=== PATIENT | male | born 1935 | race Caucasian/White ===

== ENCOUNTER 2016-09-07 09:13 | Inpatient (IN) | payer MEDICARE, OTHER ==
[~2016-09-07] VITALS: Ht 167.6 cm; Wt 131.1 kg
[2016-09-07] VITALS (8 sets, daily range): BP systolic 124–144; BP diastolic 61–78; PULSE 58–84; RESP 16–22; TEMP 97.2–97.9; O2SAT 95–98
[~2016-09-07 09:13] MED LIST: COUM2TAB PO; D31000CA PO; FURO1TAB93 PO; HYDR10 PO; IMDU30TA PO; LEVA750T PO; LINE1TAB22 PO; METO25 PO; NOVOLOGSS SQ; REFR0.5D4 EACH EYE; SPIR25TA PO; ULTR50TA PO
[2016-09-07] MEDS ORDERED: SODIUM CHLORIDE 0.9% FLUSH 5 ML FLUSH IVF PRN (09:30)
[2016-09-07] MEDS ORDERED: VANCOMYCIN INJ 1,000 MG in SODIUM CHLOR 0.9% 250 ML INJ 250 ML IV ONE (09:45)
--- NOTE | 2016-09-07 09:45 | PD ---
HPI Chief Complaint: Skin Problem Time Seen by Provider: 09:23 Travel History International Travel<30 days: No Contact w/Intl Traveler<30days: No Traveled to known affect area: No History of Present Illness HPI 81-year-old male with history of diabetes, sent in from skilled nursing for evaluation of bilateral lower extremity cellulitis, failed outpatient therapy. According to the patient's paperwork, he is on Zosyn which she receives through a PICC line in his left arm. Patient complains of pain in bilateral legs which she has had for quite some time. He is otherwise a poor historian regarding why he is in the hospital. He is awake and alert. Case discussed with the patient's primary care physician Dr. Washington who says that he was informed by skilled nursing staff that the patient's lower extremity cellulitis on his left leg appears to be worsening and spreading up his thigh and lateral shows an elevated WBC count with worsening creatinine. PFSH Past Medical History Hx Anticoagulant Therapy: Yes Arthritis: Yes Asthma: No Atrial Fibrillation: Yes Autoimmune Disease: No Blood Disorders: No Anxiety: No Depression: Yes Heart Rhythm Problems: Yes (ATRIAL FIB, cardioversion ) Cancer: No Cardiac Catheterization: Yes Cardiovascular Problems: Yes High Cholesterol: Yes Chemotherapy: No Chest Pain: Yes COPD: Yes Cerebrovascular Accident: No Diabetes: Yes (type 2 diabetic) Patient Takes Glucophage: No Diminished Hearing: No Endocrine: Yes Gastrointestinal Disorders: No GERD: No Glaucoma: No Genitourinary: Yes Hepatitis: Yes (HEP B 1988) Hiatal Hernia: No Heparin Induced Thrombocytopen: No Hypertension: Yes Immune Disorder: No Implanted Vascular Access Dvce: No Kidney Stones: No Musculoskeletal: Yes (CHRONIC BACK PAIN) Neurologic: No Psychiatric: Yes (DENIES) Reproductive: No Respiratory: Yes Integumentary: Yes (ECEZEMA ) Immunizations Current: Yes Migraines: No Myocardial Infarction: Yes Radiation Therapy: No Renal Failure: No Seizures: No Sickle Cell Disease: No Sleep Apnea: Yes (CPAP NOT WEARING RECENTLY) Thyroid Disease: No Ulcer: No PNEUMOCCOCAL Vaccine (Year): 2 ?: Not Past Surgical History Abdominal Surgery: No AICD: No Appendectomy: No Arteriovenous Shunt: No Cardiac Surgery: Yes (ABLASION ) Cholecystectomy: No Ear Surgery: No Endocrine Surgery: No Eye Surgery: No Genitourinary Surgery: No Gynecologic Surgery: No Insulin Pump: No Joint Replacement: No Neurologic Surgery: No Oral Surgery: No Pacemaker: No Thoracic Surgery: No Tonsillectomy: Yes (1940) Other Surgery: Yes (SKIN GRAFTS) Social History Alcohol Use: Yes (LESS THAN 1 ONCE A WEEK ) Tobacco Use: No Substance Use: No Allergies-Medications (Allergen,Severity, Reaction): Coded Allergies: Sulfa (Verified Allergy, Intermediate, Rash, 09/07/16) *MDRO Multi-Drug Resistant Organism (Verified Adverse Reaction, Unknown, ) MRSA (leg wound) - 09/2015, 03/2016 Reported Meds & Prescriptions Reported Meds & Active Scripts Active Coumadin 2 mg (Warfarin Sodium) Warfarin Sodium 2 mg Tab 2 Mg PO DAILY Novolog Insulin Supplemental Scale (Insulin Aspart) 100 /Ml Inj 1 Bottle SQ ACHS SLIDING SCALE 90 Days Zyvox (Linezolid) 600 Mg Tab 600 Mg PO Q12HR 7 Days Levaquin 750 Mg Tab (Levofloxacin) 750 Mg Tab 750 Mg PO Q48H 7 Days Ultram (Tramadol HCl) 50 Mg Tab 50 Mg PO Q4H PRN Reported Refresh Tears (Carboxymethylcellulose Sodium) 0.5 % Antonietta 1 Drop EACH EYE Q6H PRN Metoprolol Tartrate 25 mg (Metoprolol Tartrate) 25 Mg Tab 12.5 Mg PO BID Atarax 10 Mg Tab (Hydroxyzine HCl) 10 Mg Tab 10 Mg PO DAILY PRN Spironolactone 25 Mg Tab 25 Mg PO BID Lasix (Furosemide) 40 Mg Tab 40 Mg PO BID Imdur (Isosorbide Mononitrate) 30 Mg Tab 30 Mg PO DAILY D3 (Cholecalciferol) 1,000 Unit Cap 1,000 Unit PO BID Review of Systems Except as stated in HPI: all other systems reviewed are Neg Physical Exam Narrative GENERAL: Well-developed, well-nourished, awake, alert, no acute distress. SKIN: Warm and dry. Bilateral lower extremities with moderate edema with warmth and erythema to bilateral legs with some erythema extending up the patient's left thigh. No crepitus. HEAD: Atraumatic. Normocephalic. EYES: Pupils equal and round. No scleral icterus. No injection or drainage. ENT: No nasal bleeding or discharge. Mucous membranes pink and moist. NECK: Trachea midline. No JVD. CARDIOVASCULAR: Regular rate and rhythm. No murmur appreciated. RESPIRATORY: No accessory muscle use. Clear to auscultation. Breath sounds equal bilaterally. GASTROINTESTINAL: Abdomen soft, non-tender, nondistended. Reducible periumbilical hernia. MUSCULOSKELETAL: Skin exam as above. Moderate bilateral lower extremity edema. NEUROLOGICAL: Awake and alert. No obvious cranial nerve deficits. Motor grossly within normal limits. Normal speech. PSYCHIATRIC: Appropriate mood and affect; insight and judgment normal. Data Data Last Documented VS Vital Signs Date Time Temp Pulse Resp B/P Pulse Ox O2 Delivery O2 Flow Rate FiO2 09/07/16 09:25 62 20 09/07/16 09:25 97.9 124/71 95 Room Air Orders Complete Blood Count With Diff (09/07/16 09:30) Comprehensive Metabolic Panel (09/07/16 09:30) Lactic Acid (09/07/16 09:30) Prothrombin Time / Inr (Pt) (09/07/16 09:30) Act Partial Throm Time (Ptt) (09/07/16 09:30) Iv Access Insert/Monitor (09/07/16 09:30) Ecg Monitoring (09/07/16 09:30) Oximetry (09/07/16 09:30) Sodium Chloride 0.9% Flush (Ns Flush) (09/07/16 09:30) Blood Culture (09/07/16 09:30) Vancomycin Inj (Vancomycin Inj) (09/07/16 09:45) Labs Laboratory Tests Test 09/07/16 10:05 White Blood Count 8.5 TH/MM3 Red Blood Count 4.42 MIL/MM3 Hemoglobin 13.8 GM/DL Hematocrit 41.4 % Mean Corpuscular Volume 93.6 FL Mean Corpuscular Hemoglobin 31.2 PG Mean Corpuscular Hemoglobin 33.3 % Concent Red Cell Distribution Width 13.5 % Platelet Count 260 TH/MM3 Mean Platelet Volume 6.9 FL Neutrophils (%) (Auto) 71.1 % Lymphocytes (%) (Auto) 16.3 % Monocytes (%) (Auto) 9.4 % Eosinophils (%) (Auto) 3.1 % Basophils (%) (Auto) 0.1 % Neutrophils # (Auto) 6.0 TH/MM3 Lymphocytes # (Auto) 1.4 TH/MM3 Monocytes # (Auto) 0.8 TH/MM3 Eosinophils # (Auto) 0.3 TH/MM3 Basophils # (Auto) 0.0 TH/MM3 CBC Comment AUTO DIFF Prothrombin Time 11.1 SEC Prothromb Time International 1.0 RATIO Ratio Activated Partial 28.0 SEC Thromboplast Time MDM Medical Decision Making Medical Screen Exam Complete: Yes Emergency Medical Condition: Yes Medical Record Reviewed: Yes Differential Diagnosis Sepsis, cellulitis, lymphangitis, necrotizing fasciitis unlikely Narrative Course Vital signs reviewed. Patient is well-known to Dr. Washington who would like to admit him to his service for failed outpatient therapy for bilateral lower extremity cellulitis. He'll be given a dose of vancomycin here in the emergency department. Diagnosis Primary Impression: Bilateral lower leg cellulitis Admitting Information Admitting Physician Requests: Admit Andrea Correia MD Sep 07, 2016 09:45
[2016-09-07 10:38] LABS: BASOPHIL % 0.1 % (0.0-2.0); EOSINOPHIL # 0.3 TH/MM3 (0-0.4); EOSINOPHIL % 3.1 % (0.0-4.0); HEMATOCRIT 41.4 % (39.0-51.0); LYMPH % 16.3 % (9.0-44.0); LYMPHOCYTE # 1.4 TH/MM3 (1.0-4.8); MEAN CELL VOLUME 93.6 FL (80.0-100.0); MEAN CORPUSCULAR HEMOGLOBIN 31.2 PG (27.0-34.0); MEAN CORPUSCULAR HGB CONC 33.3 % (32.0-36.0); MONO % 9.4 % (0.0-8.0); NEUT % 71.1 % (16.0-70.0); PLATELET COUNT 260 TH/MM3 (150-450); RED BLOOD COUNT 4.42 MIL/MM3 (4.50-5.90); RED CELL DISTRIBUTION WIDTH 13.5 % (11.6-17.2); WHITE BLOOD COUNT 8.5 TH/MM3 (4.0-11.0)
[2016-09-07 10:43] LABS: HEMO FLAGS AUTO DIFF
[2016-09-07 10:49] LABS: PROTHROMBIN TIME - PATIENT 11.1 SEC (9.8-11.6)
[2016-09-07 11:07] LABS: ALKALINE PHOSPHATASE 73 U/L (45-117); ALT (GPT) 28 U/L (12-78); ANION GAP 10 MEQ/L (5-15); AST (GOT) 29 U/L (15-37); BICARBONATE 28.6 MEQ/L (21.0-32.0); BLOOD UREA NITROGEN 51 MG/DL (7-18); CHLORIDE 93 MEQ/L (98-107); GLOMERULAR FILTRATION RATE 27 ML/MIN (>89); SODIUM (NA) 132 MEQ/L (136-145); TOTAL BILIRUBIN ADULT 0.4 MG/DL (0.2-1.0)
[2016-09-07 11:35] LABS: BANDS 8 % (0-6); MYELOCYTES 3 % (0-0); NEUTROPHIL # MANUAL DIFF 6.6 TH/MM3 (1.8-7.7); POLYS (SEG NEUTROPHILS) 67 % (16-70); WBC DIFF SAMPLE 100
[2016-09-07 11:36] LABS: PLATELET ESTIMATE SMEAR NORMAL (NORMAL); PLATELET MORPHOLOGY NORMAL (NORMAL); SCAN/DIFF FINAL DIFF MANUAL
--- NOTE | 2016-09-07 11:57 | HHI.HP ---
History of Present Illness Primary Care Physician Per Washington MD Admission Diagnosis bilateral lower extremity cellulitis Diagnoses: (1) Diarrhea (2) Coronary artery disease (3) Atrial fibrillation (4) Gout (5) Diabetes (6) CHF (congestive heart failure) (7) A-fib (8) Chronic renal insufficiency (9) Obstructive sleep apnea (10) COPD exacerbation (11) Bilateral leg edema (12) Acute on chronic renal failure (13) Morbid obesity with BMI of 45.0-49.9, adult (14) COPD (chronic obstructive pulmonary disease) (15) Cellulitis (16) HTN (hypertension) (17) MRSA (methicillin resistant Staphylococcus aureus) infection (18) MOISÉS (acute kidney injury) (19) Bilateral lower leg cellulitis History of Present Illness 81 Y CM. SNF RESIDENT. RECURRENT EDEMA AND CELLULITIS OF LEGS. HAS HAD DRAINING ULCER LLE. PT NONCOMPLIANT WITH ELEVATING LEGS. DEVELOPED WORSENING EDEMA AND SUBSEQUENT CELLULITIS. TREATED WITH PO ABX TWICE THIS MONTH, AND LAST WEEK I STARTED ZOSYN AT THE SNF. CELLULITIS OF LLE EXPANDED FROM CALF NOW TO THE LEFT THIGH. ALSO FOUND WITH WBC'S OF 19 THOUSAND, CREAT 2.6. PT STARTED HAVING DIARRHEA AGAIN YESTERDAY AND HAS HX C DIF. PT SON AND DGTR IN [facility] AND REQUESTED MORE AGGRESSIVE INPATIENT CARE. I ORDERED TO ER TODAY. PT SEEN IN C POD WITH HIS SON. DESHEVELED AND LETHARGIC. Sepsis Criteria SIRS Criteria (2 or more): RR > 20 or PaCO2 < 32, WBC > 16153, < 4000 or > 10 % bands Sepsis Criteria (SIRS+source): Infect source susp/known Severe Sepsis (+one): Organ Dysfunction, Lactate >2 Criteria Outcome: Meets severe sepsis criteria Review of Systems ROS Limitations: Clinical Condition, Altered Mental Status, Uncooperative, Hearing Impaired, Poor Historian Past Family Social History Allergies: Coded Allergies: Sulfa (Verified Allergy, Intermediate, Rash, 09/07/16) *MDRO Multi-Drug Resistant Organism (Verified Adverse Reaction, Unknown, ) MRSA (leg wound) - 09/2015, 03/2016 Past Medical History (1) Diarrhea (2) Coronary artery disease (3) Atrial fibrillation (4) Gout (5) Diabetes (6) CHF (congestive heart failure) (7) A-fib (8) Chronic renal insufficiency (9) Obstructive sleep apnea (10) COPD exacerbation (11) Bilateral leg edema (12) Acute on chronic renal failure (13) Morbid obesity with BMI of 45.0-49.9, adult (14) COPD (chronic obstructive pulmonary disease) (15) Cellulitis (16) HTN (hypertension) (17) MRSA (methicillin resistant Staphylococcus aureus) infection (18) MOISÉS (acute kidney injury) (19) Bilateral lower leg cellulitis Past Surgical History nc Reported Medications Current Medications Medications (Trade) Dose Ordered Sig/Abiola Route Start Time Stop Time Status Last Admin (NS Flush) 2 ml UNSCH PRN IVF 09/07/16 09:30 Family History NC Social History - ETD, SNF RES Physical Exam Vital Signs Vital Signs Date Time Temp Pulse Resp B/P Pulse Ox O2 Delivery O2 Flow Rate FiO2 09/07/16 11:51 58 18 127/65 95 Room Air 09/07/16 10:54 84 18 127/61 96 Room Air 09/07/16 09:25 62 20 09/07/16 09:25 97.9 62 18 124/71 95 Room Air 09/07/16 09:22 97.9 64 18 124/71 95 Physical Exam GENERAL: This is a well-nourished, well-developed patient, in no apparent distress. SKIN: No rashes, ecchymoses or lesions. Cool and dry. HEAD: Atraumatic. Normocephalic. No temporal or scalp tenderness. EYES: Pupils equal round and reactive. Extraocular motions intact. No scleral icterus. No injection or drainage. ENT: Nose without bleeding, purulent drainage or septal hematoma. Throat without erythema, tonsillar hypertrophy or exudate. Uvula midline. Airway patent. NECK: Trachea midline. No JVD or lymphadenopathy. Supple, nontender, no meningeal signs. CARDIOVASCULAR: Regular rate and rhythm without murmurs, gallops, or rubs. RESPIRATORY: Clear to auscultation. Breath sounds equal bilaterally. No wheezes , rales, or rhonchi. GASTROINTESTINAL: Abdomen soft, non-tender, nondistended. No hepato-splenomegaly , or palpable masses. No guarding. MUSCULOSKELETAL: LLE CELLULITIS TO MID THIGH, MILD RLE CELLULITIS, Negative Homans sign bilaterally. NEUROLOGICAL: Awake and alert. Cranial nerves II through XII intact. Motor and sensory grossly within normal limits. 1 out of 5 muscle strength in all muscle groups. Normal speech. Laboratory Laboratory Tests Test 09/07/16 09/07/16 10:05 10:15 White Blood Count 8.5 Red Blood Count 4.42 Hemoglobin 13.8 Hematocrit 41.4 Mean Corpuscular Volume 93.6 Mean Corpuscular Hemoglobin 31.2 Mean Corpuscular Hemoglobin 33.3 Concent Red Cell Distribution Width 13.5 Platelet Count 260 Mean Platelet Volume 6.9 Neutrophils (%) (Auto) 71.1 Lymphocytes (%) (Auto) 16.3 Monocytes (%) (Auto) 9.4 Eosinophils (%) (Auto) 3.1 Basophils (%) (Auto) 0.1 Neutrophils # (Auto) 6.0 Lymphocytes # (Auto) 1.4 Monocytes # (Auto) 0.8 Eosinophils # (Auto) 0.3 Basophils # (Auto) 0.0 CBC Comment AUTO DIFF Differential Total Cells 100 Counted Neutrophils % (Manual) 67 Band Neutrophils % 8 Lymphocytes % 13 Monocytes % 9 Neutrophils # (Manual) 6.6 Myelocytes 3 Differential Comment FINAL DIFF MANUAL Platelet Estimate NORMAL Platelet Morphology Comment NORMAL Red Cell Morphology Comment NORMAL Prothrombin Time 11.1 Prothromb Time International 1.0 Ratio Activated Partial 28.0 Thromboplast Time Sodium Level 132 Potassium Level 4.0 Chloride Level 93 Carbon Dioxide Level 28.6 Anion Gap 10 Blood Urea Nitrogen 51 Creatinine 2.34 Estimat Glomerular Filtration 27 Rate Random Glucose 319 Calcium Level 8.5 Total Bilirubin 0.4 Aspartate Amino Transf 29 (AST/SGOT) Alanine Aminotransferase 28 (ALT/SGPT) Alkaline Phosphatase 73 Total Protein 7.1 Albumin 2.6 Lactic Acid Level 3.2 Date/Time Procedure Status Source Growth 09/07/16 10:15 Aerobic Blood Culture Received Blood Peripheral Pending 09/07/16 10:15 Anaerobic Blood Culture Received Blood Peripheral Pending Result Diagram: 09/07/16 1005 09/07/16 1005 Assessment and Plan Problem List: (1) C. difficile colitis Status: Resolved (2) Ambulatory dysfunction Status: Acute (3) Failure of outpatient treatment Status: Acute (4) DM (diabetes mellitus) Status: Chronic (5) Obesity, Class III, BMI 40-49.9 (morbid obesity) Status: Acute (6) COPD (chronic obstructive pulmonary disease) Status: Chronic (7) Coronary artery disease Status: Chronic (8) Atrial fibrillation Status: Chronic (9) Gout Status: Acute (10) CHF (congestive heart failure) Status: Chronic (11) A-fib Status: Chronic (12) Chronic renal insufficiency Status: Chronic (13) HTN (hypertension) Status: Chronic (14) Obstructive sleep apnea Status: Chronic (15) COPD exacerbation Status: Acute (16) Bilateral leg edema Status: Chronic (17) MRSA (methicillin resistant Staphylococcus aureus) infection Status: Acute (18) Acute on chronic renal failure Status: Acute (19) MOISÉS (acute kidney injury) Status: Acute (20) Bilateral lower leg cellulitis Status: Acute (21) Morbid obesity with BMI of 45.0-49.9, adult Status: Chronic Assessment and Plan SEVERE SEPSIS LACTIC ACIDOSIS SEVERE LLE CELLULITIS CHRONIC EDEMA DM DIARRHEA, HISTORY OF C DIF MOISÉS COPD AF CHF GOUT MRSA HX PLAN: IV ABX IVF BLOOD CULTURES UA C/S C DIF ID CONSULT PT OT [facility] INPT ADMIT FOR THE ABOVE DX AND PLAN. EXPECT 5 D INPT STAY. DC BACK TO [facility]. Per Washington MD Sep 07, 2016 11:56
[2016-09-07] MEDS ORDERED: NALOXONE HCL 0.4 MG/ML AMP IV PRN (12:15)
[2016-09-07] MEDS ORDERED: SODIUM CHLORIDE 0.9% FLUSH 5 ML FLUSH FLUSH PRN (12:15)
[2016-09-07] MEDS ORDERED: DEXTROSE 50% IN WATER 50 ML VIAL(D50) IV PUSH PRN (12:15)
[2016-09-07] MEDS ORDERED: PIPERACIL-TAZO 3.375 GM PREMIX 50 ML IV SCH (12:15)
[2016-09-07] MEDS ORDERED: Vancomycin Consult Pharmacy 1 EA XX SCH (12:15)
[2016-09-07] MEDS ORDERED: GLUCAGON 1 MG/ML VIAL OTHER PRN (12:15)
[2016-09-07] MEDS ORDERED: BISACODYL 10 MG SUPP PR PRN (12:15)
[2016-09-07] MEDS ORDERED: ARTIFICIAL TEARS OPTH SOLN 15 ML BTL EACH EYE PRN (13:00)
[2016-09-07] MEDS ORDERED: ACETAMINOPHEN 325 MG TAB PO PRN (13:00)
[2016-09-07] MEDS ORDERED: LORazepam 0.5 MG TAB PO PRN (13:00)
[2016-09-07] MEDS ORDERED: MAGNESIUM HYDROXIDE SUSP 30 ML CUP PO PRN (13:00)
[2016-09-07] MEDS ORDERED: cloNIDine HCL 0.1 MG TAB PO PRN (13:00)
[2016-09-07] MEDS ORDERED: PIPERACIL-TAZO 2.25 GM PREMIX 50 ML IV SCH (13:00)
[2016-09-07] MEDS ORDERED: traMADol HCL 50 MG TAB PO PRN (13:00)
[2016-09-07] MEDS ORDERED: ONDANSETRON HCL 4 MG/2 ML VIAL IVP PRN (13:00)
[2016-09-07] MEDS: SODIUM CHLOR 0.9% 1000 ML INJ 1,000 ML IV SCH (13:36)
[2016-09-07] MEDS ORDERED: VANCOMYCIN 1,000 MG/NS 250 ML IV ONE ×2 (14:00)
[2016-09-07] MEDS: PANTOPRAZOLE SODIUM 40 MG VIAL IV PUSH SCH (15:09)
[2016-09-07] MEDS: ACETAMINOPHEN/HYDROcodone 325 MG/5 MG TAB PO PRN ×2 (15:54→21:26)
[2016-09-07] MEDS: INSULIN ASPART SUPPLEMENTAL SCALE SQ SCH ×2 (15:55→21:31)
[2016-09-07] MEDS: PIPERACIL-TAZO 2.25 GM PREMIX 50 ML IV SCH (18:01)
[2016-09-07] MEDS ORDERED: DAPTOmycin INJ 500 MG in SODIUM CHLORIDE 0.9% INJ 100 ML IV SCH (21:00)
[2016-09-07] MEDS ORDERED: ZOLPIDEM TARTRATE 5 MG TAB PO PRN (21:00)
[2016-09-07] MEDS: SODIUM CHLORIDE 0.9% FLUSH 5 ML FLUSH FLUSH SCH (21:00)
[2016-09-07] MEDS: METOPROLOL TARTRATE 25 MG TAB PO SCH (21:25)
[2016-09-07] MEDS: CLOTRIMAZOLE 1% CREAM 15 GM TOPICAL SCH (21:32)
[2016-09-08] VITALS (8 sets, daily range): BP systolic 126–146; BP diastolic 57–74; PULSE 62–75; RESP 18–22; TEMP 96.5–97.9; O2SAT 96–99
[2016-09-08] MEDS: PIPERACIL-TAZO 2.25 GM PREMIX 50 ML IV SCH ×5 (00:47→21:44)
[2016-09-08] MEDS: INSULIN ASPART SUPPLEMENTAL SCALE SQ SCH ×4 (06:37→21:45)
[2016-09-08 06:55] LABS: AUTOMATED NEUTROPHIL # 6.4 TH/MM3 (1.8-7.7); BASOPHIL % 0.5 % (0.0-2.0); EOSINOPHIL # 0.3 TH/MM3 (0-0.4); EOSINOPHIL % 3.7 % (0.0-4.0); HEMATOCRIT 41.1 % (39.0-51.0); HEMO FLAGS DIFF FINAL; LYMPH % 14.5 % (9.0-44.0); LYMPHOCYTE # 1.3 TH/MM3 (1.0-4.8); MEAN CELL VOLUME 93.3 FL (80.0-100.0); MEAN CORPUSCULAR HEMOGLOBIN 30.9 PG (27.0-34.0); MEAN CORPUSCULAR HGB CONC 33.1 % (32.0-36.0); MONO % 9.8 % (0.0-8.0); NEUT % 71.5 % (16.0-70.0); PLATELET COUNT 258 TH/MM3 (150-450); RED CELL DISTRIBUTION WIDTH 13.5 % (11.6-17.2); WHITE BLOOD COUNT 8.9 TH/MM3 (4.0-11.0)
[2016-09-08 07:03] LABS: PROTHROMBIN TIME - PATIENT 11.1 SEC (9.8-11.6)
[2016-09-08 07:12] LABS: BICARBONATE 27.9 MEQ/L (21.0-32.0); POTASSIUM 4.2 MEQ/L (3.5-5.1)
--- NOTE | 2016-09-08 08:40 | MB ---
cc: SIMON CARCAMO MD DATE OF CONSULTATION 09/07/[address] Washington REASON FOR CONSULTATION Sepsis HISTORY OF PRESENT ILLNESS This is an 81-year-old white male who presented to the emergency department with bilateral lower extremity redness of the skin. The patient was sent from a snf for evaluation. He had a PICC line in his left arm and was started on antibiotics in the form of Zyvox and Levaquin. He has also been complaining of pain in his legs and the cellulitis was noted to be some worsening and spreading up his thigh. The patient was reported to have a draining ulcer of the left lower extremity. Reportedly, he was treated with antibiotics two times earlier in the month and then was started on Zosyn. He reportedly has a history of C-difficile colitis. He was noted to be lethargic when he was seen earlier in the emergency department. The patient is currently sitting up in a chair. He is awake and alert although a little lethargic appearing. Vital signs: Include his temperature is 97.3. Blood cultures have been obtained. The patient denies chills. He denies nausea or vomiting. PAST MEDICAL HISTORY 1. History of bilateral lower extremity cellulitis in March 2016 with Pseudomonas maltophilia and MRSA. 2. History of peripheral arterial disease. 3. Diabetes mellitus 4. Hypertension 5. Morbid obesity 6. History of C-difficile. 7. Tonsillectomy ALLERGIES SULFA MEDICATIONS 1. Piperacillin/Tazobactam 2. Atarax 3. Lopressor 4. Imdur 5. Coumadin 6. Protonix 7. Insulin 8. Vancomycin dose given on 09/07/16 9. [place] 5 as needed SOCIAL HISTORY The patient is a snf resident. No tobacco use. Alcohol consumption once a week. No illicit drugs. FAMILY HISTORY Noncontributory REVIEW OF SYSTEMS Significant for pain in the legs, otherwise the patient's review of systems negative x10. PHYSICAL EXAMINATION This is an obese male who is in no acute distress. He is awake but lethargic. VITAL SIGNS: Temperature 97.38, BP 142/66, respirations 16, heart rate 73. HEENT: Head is atraumatic. Extraocular movements grossly intact, pupils reactive to light. No icterus. Oropharynx no visible lesions. NECK: Supple without adenopathy. LUNGS: Decreased clear breath sounds. HEART: Regular S1 and S2. No audible murmurs. ABDOMEN: Bowel sounds present, soft, markedly obese, nontender. RECTAL: Not performed. EXTREMITIES: Both lower extremities are extremely erythematous throughout and have blanching. The left lower extremity is much more erythematous and it has a purplish hue and is extremely warm. The toes have dry skin at the creases. No visible skin breaks or drainage. NEUROLOGIC: Nonfocal. LABORATORY DATA WBC 8.5, platelet count 260, 71% neutrophils, hemoglobin 13.8. Creatinine 2.34, BUN 51, sodium 132. IMPRESSION 1. Bilateral lower extremity cellulitis and edema. 2. Diabetes mellitus 3. Acute on chronic kidney disease. 4. Failed outpatient antibiotic therapy. RECOMMENDATIONS 1. Continue piperacillin/tazobactam. 2. Add daptomycin, adjusted for renal function. 3. Follow response of antibiotic treatment. 4. Apply antifungal cream between the creases of the toes. Thank you for this consultation. I will monitor the patient's progress and will make further recommendations on followup. A stool C-difficile toxin has been ordered and that should be monitored as well. Thank you for this consultation. Simon Carcamo MD FD/LIZANDRO /7:29 PM /8:23 AM TODD
[2016-09-08] MEDS: CLOTRIMAZOLE 1% CREAM 15 GM TOPICAL SCH ×2 (08:48→21:41)
[2016-09-08] MEDS: SODIUM CHLORIDE 0.9% FLUSH 5 ML FLUSH FLUSH SCH ×2 (08:48→21:46)
[2016-09-08] MEDS: METOPROLOL TARTRATE 25 MG TAB PO SCH ×2 (08:49→21:41)
[2016-09-08] MEDS: ISOSORBIDE MONONITRATE 30 MG TAB PO SCH (08:49)
[2016-09-08] MEDS ORDERED: hydrOXYzine HCL 10 MG TAB PO PRN (09:00)
--- NOTE | 2016-09-08 11:51 | HHI.FPPN ---
Subjective Remarks MOD DISTRESS C/O WEAKNESS COUGHING MORE CONFUSED D/W RN Objective Vitals Vital Signs Date Time Temp Pulse Resp B/P Pulse Ox O2 Delivery O2 Flow Rate FiO2 09/08/16 08:00 97.5 68 20 131/60 97 09/08/16 04:00 97.8 71 20 144/74 99 09/08/16 00:00 97.3 71 22 135/73 96 09/07/16 20:00 97.2 67 22 144/77 97 09/07/16 16:00 97.3 73 16 143/66 98 09/07/16 15:47 72 18 142/78 96 09/07/16 11:51 58 18 127/65 95 Room Air I/O 09/07/16 09/07/16 09/07/16 09/08/16 09/08/16 09/08/16 07:00 15:00 23:00 07:00 15:00 23:00 Intake Total 240 ml 60 ml Output Total 400 ml Balance -160 ml 60 ml Intake Oral 240 ml 60 ml Output Urine Total 400 ml # Voids 2 2 # Bowel Movements 2 2 Result Diagram: 09/08/1637 09/08/1637 Objective Remarks GENERAL: SKIN: Warm and dry. HEAD: Atraumatic. Normocephalic. EYES: Pupils equal and round. No scleral icterus. No injection or drainage. ENT: No nasal bleeding or discharge. Mucous membranes pink and moist. NECK: Trachea midline. No JVD. CARDIOVASCULAR: Regular rate and rhythm. RESPIRATORY: No accessory muscle use. Clear to auscultation. Breath sounds equal bilaterally. GASTROINTESTINAL: Abdomen soft, non-tender, nondistended. Hepatic and splenic margins not palpable. MUSCULOSKELETAL: 3 LE EDEMA, SEVERE LLE CELLULITIS TO MID THIGH, MILD ON R NEUROLOGICAL: Awake and alert. No obvious cranial nerve deficits. Motor grossly within normal limits. 1 out of 5 muscle strength in the arms and legs. Normal speech. PSYCHIATRIC: Appropriate mood and affect; insight and judgment normal. Medications and IVs Current Medications Medications (Trade) Dose Ordered Sig/Abiola Route Start Time Stop Time Status Last Admin (Tears Naturale Opth Soln) 1 drop Q6H PRN EACH EYE 09/07/16 13:00 (Imdur) 30 mg DAILY PO 09/08/16 09:00 09/08/16 08:49 (Lopressor) 12.5 mg BID PO 09/07/16 21:00 09/08/16 08:49 (Ultram) 50 mg Q4HR PRN PO 09/07/16 13:00 (Coumadin) 2 mg DAILY@16 PO 09/08/16 16:00 Hydroxyzine HCl 10 mg 10 mg DAILY PRN PO 09/08/16 09:00 09/08/16 04:21 (NS 1000 ml Inj) 1,000 ml @ 42 mls/hr [id number] IV 09/07/16 12:02 09/07/16 13:36 (NS Flush) 2 ml UNSCH PRN FLUSH 09/07/16 12:15 (NS Flush) 2 ml BID FLUSH 09/07/16 21:00 09/08/16 08:48 (Tylenol) 650 mg Q4H PRN PO 09/07/16 13:00 (Zofran Inj) 4 mg Q6H PRN IVP 09/07/16 13:00 (Dulcolax Supp) 10 mg DAILY PRN CA 09/07/16 12:15 (Milk Of Magndomo Liq) 30 ml Q12HR PRN PO 09/07/16 13:00 (Ambien) 5 mg HS PRN PO 09/07/16 21:00 (Narcan Inj) 0.4 mg UNSCH PRN IV 09/07/16 12:15 ([place] 5-325 Mg) 1 tab Q4H PRN PO 09/07/16 13:00 09/07/16 21:26 (Ativan) 0.5 mg Q8H PRN PO 09/07/16 13:00 Clonidine 0.1 mg 0.1 mg Q6H PRN PO 09/07/16 13:00 (Coumadin Consult Pharmacy) 0 ml @ 0 mls/hr UNSCH OTHER 09/07/16 12:15 (Protonix Inj) 40 mg Q24H IV PUSH 09/07/16 15:00 09/07/16 15:09 (D50w (Vial) Inj) 25 ml UNSCH PRN IV PUSH 09/07/16 12:15 Glucagon 1 mg 1 mg UNSCH PRN OTHER 09/07/16 12:15 Piperacillin Sod/ Tazobactam Sod 50 ml @ 100 mls/hr Q6H IV 09/07/16 18:00 09/08/16 06:34 (Cubicin Inj/NS Inj) 100 ml @ 200 mls/hr Q48H IV 09/07/16 21:00 09/07/16 21:32 (Lotrimin 1% Cream) 1 applic Q12HR TOPICAL 09/07/16 21:00 09/08/16 08:48 A/P Assessment and Plan SEVERE SEPSIS LACTIC ACIDOSIS SEVERE LLE CELLULITIS CHRONIC EDEMA DM DIARRHEA, HISTORY OF C DIF MOISÉS COPD AF CHF GOUT MRSA HX PLAN: IV ABX IVF BLOOD CULTURES UA C/S C DIF ID CONSULT PT OT [facility] Per Washington MD Sep 08, 2016 11:51
[2016-09-08] MEDS: SODIUM CHLOR 0.9% 1000 ML INJ 1,000 ML IV SCH (12:25)
[2016-09-08] MEDS: PANTOPRAZOLE SODIUM 40 MG VIAL IV PUSH SCH (16:16)
[2016-09-08] MEDS: WARFARIN SOD 2 MG TAB PO SCH (16:16)
--- NOTE | 2016-09-08 19:04 | HHI.IDPN ---
Note Infectious Disease Note Patient is sleepy. Wakes up and says he is okay then drift's back to sleep. RN reports that he mostly sleeps except when he gets up to eat. Afebrile. Seen for LE cellulitis. PAST MEDICAL HISTORY 1. History of bilateral lower extremity cellulitis in March 2016 with Pseudomonas maltophilia and MRSA. 2. History of peripheral arterial disease. 3. Diabetes mellitus 4. Hypertension 5. Morbid obesity 6. History of C-difficile. 7. Tonsillectomy ALLERGIES SULFA MEDICATIONS 1. Piperacillin/Tazobactam 2. Daptomycin. OBJECTIVE: Vital Signs Date Time Temp Pulse Resp B/P Pulse Ox O2 Delivery O2 Flow Rate FiO2 09/08/16 18:16 97 21 09/08/16 16:00 97.9 75 20 132/58 97 09/08/16 12:00 96.5 63 18 126/57 97 09/08/16 08:00 97.5 68 20 131/60 97 09/08/16 04:00 97.8 71 20 144/74 99 09/08/16 00:00 97.3 71 22 135/73 96 09/07/16 20:00 97.2 67 22 144/77 97 09/07/16 09/07/16 09/08/16 15:00 23:00 07:00 Intake Total 240 ml 60 ml Output Total 400 ml Balance -160 ml 60 ml Intake Oral 240 ml 60 ml Output Urine Total 400 ml # Voids 2 2 # Bowel Movements 2 2 Laboratory Tests Test 09/07/16 09/08/16 10:05 06:37 White Blood Count 8.5 TH/MM3 8.9 TH/MM3 Red Blood Count 4.42 MIL/MM3 4.40 MIL/MM3 Hemoglobin 13.8 GM/DL 13.6 GM/DL Hematocrit 41.4 % 41.1 % Mean Corpuscular Volume 93.6 FL 93.3 FL Mean Corpuscular Hemoglobin 31.2 PG 30.9 PG Mean Corpuscular Hemoglobin 33.3 % 33.1 % Concent Red Cell Distribution Width 13.5 % 13.5 % Platelet Count 260 TH/MM3 258 TH/MM3 Mean Platelet Volume 6.9 FL 6.9 FL Neutrophils (%) (Auto) 71.1 % 71.5 % Lymphocytes (%) (Auto) 16.3 % 14.5 % Monocytes (%) (Auto) 9.4 % 9.8 % Eosinophils (%) (Auto) 3.1 % 3.7 % Basophils (%) (Auto) 0.1 % 0.5 % Neutrophils # (Auto) 6.0 TH/MM3 6.4 TH/MM3 Lymphocytes # (Auto) 1.4 TH/MM3 1.3 TH/MM3 Monocytes # (Auto) 0.8 TH/MM3 0.9 TH/MM3 Eosinophils # (Auto) 0.3 TH/MM3 0.3 TH/MM3 Basophils # (Auto) 0.0 TH/MM3 0.0 TH/MM3 CBC Comment AUTO DIFF DIFF FINAL Differential Total Cells 100 Counted Neutrophils % (Manual) 67 % Band Neutrophils % 8 % Lymphocytes % 13 % Monocytes % 9 % Neutrophils # (Manual) 6.6 TH/MM3 Myelocytes 3 % Differential Comment FINAL DIFF MANUAL Platelet Estimate NORMAL Platelet Morphology Comment NORMAL Red Cell Morphology Comment NORMAL Laboratory Tests Test 09/07/16 09/07/16 09/08/16 09/08/16 10:05 10:15 00:09 06:37 Sodium Level 132 MEQ/L 136 MEQ/L Potassium Level 4.0 MEQ/L 4.2 MEQ/L Chloride Level 93 MEQ/L 101 MEQ/L Carbon Dioxide Level 28.6 MEQ/L 27.9 MEQ/L Anion Gap 10 MEQ/L 7 MEQ/L Blood Urea Nitrogen 51 MG/DL 45 MG/DL Creatinine 2.34 MG/DL 1.83 MG/DL Estimat Glomerular Filtration 27 ML/MIN 36 ML/MIN Rate Random Glucose 319 MG/DL 189 MG/DL Calcium Level 8.5 MG/DL 8.7 MG/DL Total Bilirubin 0.4 MG/DL Aspartate Amino Transf 29 U/L (AST/SGOT) Alanine Aminotransferase 28 U/L (ALT/SGPT) Alkaline Phosphatase 73 U/L Total Protein 7.1 GM/DL Albumin 2.6 GM/DL Lactic Acid Level 3.2 mmol/L 1.9 mmol/L Microbiology Date/Time Procedure Status Source Growth 09/07/16 10:05 Aerobic Blood Culture - Preliminary Resulted Blood Peripheral NO GROWTH IN 1 DAY 09/07/16 10:05 Anaerobic Blood Culture - Preliminary Resulted Blood Peripheral NO GROWTH IN 1 DAY 09/07/16 10:15 Aerobic Blood Culture - Preliminary Resulted Blood Peripheral NO GROWTH IN 1 DAY 09/07/16 10:15 Anaerobic Blood Culture - Preliminary Resulted Blood Peripheral NO GROWTH IN 1 DAY PHYSICAL EXAMINATION GENERAL: No acute distress. He is lethargic. HEENT: No icterus. Oropharynx no visible lesions. NECK: Supple without adenopathy. LUNGS: Decreased breath sounds. HEART: Regular S1 and S2. No audible murmurs. ABDOMEN: Bowel sounds present, soft, markedly obese, nontender. EXTREMITIES: Both lower extremities are extremely erythematous throughout and have blanching. The left lower extremity is much more erythematous and it has a purplish hue and is extremely warm. Erythema up to the thigh. No extension but not receded. NEUROLOGIC: Nonfocal. IMPRESSION 1. Bilateral lower extremity cellulitis and edema. Slow to respond to antibiotics. 2. Diabetes mellitus 3. Acute on chronic kidney disease. 4. Failed outpatient antibiotic therapy. RECOMMENDATIONS 1. Continue piperacillin/tazobactam. 2. Continue Daptomycin, adjusted for renal function. 3. Follow response of antibiotic treatment. Eric Hunter MD Sep 08, 2016 19:04
[2016-09-08] MEDS: ACETAMINOPHEN/HYDROcodone 325 MG/5 MG TAB PO PRN (21:41)
[2016-09-09] VITALS (7 sets, daily range): BP systolic 113–148; BP diastolic 8–78; PULSE 57–72; RESP 20; TEMP 97.3–98.3; O2SAT 95–99
[2016-09-09] MEDS: PIPERACIL-TAZO 2.25 GM PREMIX 50 ML IV SCH ×3 (04:41→16:42)
[2016-09-09] MEDS: INSULIN ASPART SUPPLEMENTAL SCALE SQ SCH ×4 (05:57→22:48)
[2016-09-09 08:20] LABS: AUTOMATED NEUTROPHIL # 6.6 TH/MM3 (1.8-7.7); BASOPHIL % 0.5 % (0.0-2.0); EOSINOPHIL # 0.3 TH/MM3 (0-0.4); EOSINOPHIL % 3.5 % (0.0-4.0); HEMATOCRIT 43.8 % (39.0-51.0); HEMO FLAGS DIFF FINAL; LYMPH % 15.9 % (9.0-44.0); LYMPHOCYTE # 1.5 TH/MM3 (1.0-4.8); MEAN CELL VOLUME 93.8 FL (80.0-100.0); MEAN CORPUSCULAR HEMOGLOBIN 31.1 PG (27.0-34.0); MEAN CORPUSCULAR HGB CONC 33.1 % (32.0-36.0); MONO % 9.1 % (0.0-8.0); PLATELET COUNT 244 TH/MM3 (150-450); RED BLOOD COUNT 4.67 MIL/MM3 (4.50-5.90); RED CELL DISTRIBUTION WIDTH 13.8 % (11.6-17.2); WHITE BLOOD COUNT 9.3 TH/MM3 (4.0-11.0)
[2016-09-09 08:38] LABS: BICARBONATE 27.4 MEQ/L (21.0-32.0); POTASSIUM 4.1 MEQ/L (3.5-5.1)
[2016-09-09] MEDS: CLOTRIMAZOLE 1% CREAM 15 GM TOPICAL SCH ×2 (08:46→21:00)
[2016-09-09] MEDS: ACETAMINOPHEN/HYDROcodone 325 MG/5 MG TAB PO PRN ×3 (08:46→22:47)
[2016-09-09] MEDS: ISOSORBIDE MONONITRATE 30 MG TAB PO SCH (08:46)
[2016-09-09] MEDS: METOPROLOL TARTRATE 25 MG TAB PO SCH ×2 (08:46→22:47)
[2016-09-09] MEDS: SODIUM CHLORIDE 0.9% FLUSH 5 ML FLUSH FLUSH SCH ×2 (08:47→21:00)
--- NOTE | 2016-09-09 08:59 | HHI.FPPN ---
Subjective Remarks INCR WEAKNESS C/O LEG PAIN C/O EDEMA D/W RN Objective Vitals Vital Signs Date Time Temp Pulse Resp B/P Pulse Ox O2 Delivery O2 Flow Rate FiO2 09/09/16 04:00 98.0 71 20 135/63 98 09/09/16 00:01 98.3 64 20 124/60 95 09/08/16 21:40 62 09/08/16 20:00 97.6 69 19 146/66 96 09/08/16 18:16 97 21 09/08/16 16:00 97.9 75 20 132/58 97 09/08/16 12:00 96.5 63 18 126/57 97 I/O 09/08/16 09/08/16 09/08/16 09/09/16 09/09/16 09/09/16 07:00 15:00 23:00 07:00 15:00 23:00 Intake Total 60 ml 1515 ml 480 ml 895 ml Output Total 800 ml 450 ml Balance 60 ml 715 ml 30 ml 895 ml Intake Oral 60 ml 480 ml 480 ml 120 ml IV Total 1035 ml 775 ml Output Urine Total 800 ml 450 ml # Voids 2 # Bowel Movements 2 2 2 2 Result Diagram: 09/09/16 0736 09/09/16735 Objective Remarks GENERAL: SKIN: Warm and dry. HEAD: Atraumatic. Normocephalic. EYES: Pupils equal and round. No scleral icterus. No injection or drainage. ENT: No nasal bleeding or discharge. Mucous membranes pink and moist. NECK: Trachea midline. No JVD. CARDIOVASCULAR: Regular rate and rhythm. RESPIRATORY: No accessory muscle use. Clear to auscultation. Breath sounds equal bilaterally. GASTROINTESTINAL: Abdomen soft, non-tender, nondistended. Hepatic and splenic margins not palpable. MUSCULOSKELETAL: 3 LE EDEMA, SEVERE LLE CELLULITIS TO MID THIGH, MILD ON R NEUROLOGICAL: Awake and alert. No obvious cranial nerve deficits. Motor grossly within normal limits. 1 out of 5 muscle strength in the arms and legs. Normal speech. PSYCHIATRIC: Appropriate mood and affect; insight and judgment normal. Medications and IVs Current Medications Medications (Trade) Dose Ordered Sig/Abiola Route Start Time Stop Time Status Last Admin (Tears Naturale Opth Soln) 1 drop Q6H PRN EACH EYE 09/07/16 13:00 (Imdur) 30 mg DAILY PO 09/08/16 09:00 09/09/16 08:46 (Lopressor) 12.5 mg BID PO 09/07/16 21:00 09/09/16 08:46 (Ultram) 50 mg Q4HR PRN PO 09/07/16 13:00 (Coumadin) 2 mg DAILY@16 PO 09/08/16 16:00 09/08/16 16:16 Hydroxyzine HCl 10 mg 10 mg DAILY PRN PO 09/08/16 09:00 09/08/16 04:21 (NS 1000 ml Inj) 1,000 ml @ 42 mls/hr [id number] IV 09/07/16 12:02 09/08/16 12:25 (NS Flush) 2 ml UNSCH PRN FLUSH 09/07/16 12:15 (NS Flush) 2 ml BID FLUSH 09/07/16 21:00 09/09/16 08:47 (Tylenol) 650 mg Q4H PRN PO 09/07/16 13:00 (Zofran Inj) 4 mg Q6H PRN IVP 09/07/16 13:00 (Dulcolax Supp) 10 mg DAILY PRN [place] 09/07/16 12:15 (Milk Of Magnesia Liq) 30 ml Q12HR PRN PO 09/07/16 13:00 (Ambien) 5 mg HS PRN PO 09/07/16 21:00 (Narcan Inj) 0.4 mg UNSCH PRN IV 09/07/16 12:15 ([place] 5-325 Mg) 1 tab Q4H PRN PO 09/07/16 13:00 09/09/16 08:46 (Ativan) 0.5 mg Q8H PRN PO 09/07/16 13:00 Clonidine 0.1 mg 0.1 mg Q6H PRN PO 09/07/16 13:00 (Coumadin Consult Pharmacy) 0 ml @ 0 mls/hr UNSCH OTHER 09/07/16 12:15 (Protonix Inj) 40 mg Q24H IV PUSH 09/07/16 15:00 09/08/16 16:16 (D50w (Vial) Inj) 25 ml UNSCH PRN IV PUSH 09/07/16 12:15 Glucagon 1 mg 1 mg UNSCH PRN OTHER 09/07/16 12:15 (Zosyn 2.25 Gm Premix) 50 ml @ 100 mls/hr Q6H IV 09/07/16 18:00 09/09/16 04:41 Clotrimazole 1 applic 1 applic Q12HR TOPICAL 09/07/16 21:00 09/09/16 08:46 (Cubicin Inj/NS Inj) 100 ml @ 200 mls/hr Q24H IV 09/09/16 21:00 Urinary Catheter: No A/P Assessment and Plan SEVERE SEPSIS LACTIC ACIDOSIS SEVERE LLE CELLULITIS CHRONIC EDEMA DM DIARRHEA, HISTORY OF C DIF MOISÉS COPD AF CHF GOUT MRSA HX PLAN: IV ABX IVF BLOOD CULTURES UA C/S C DIF ID CONSULT PT OT ST INSULIN COUMADIN, FOLLOWUP INR'S 3 Per [place] MD Sep 09, 2016 08:59
[2016-09-09 09:46] LABS: PROTHROMBIN TIME - PATIENT 10.8 SEC (9.8-11.6)
[2016-09-09] MEDS: SODIUM CHLOR 0.9% 1000 ML INJ 1,000 ML IV SCH (11:40)
[2016-09-09] MEDS ORDERED: WARFARIN SOD 2 MG TAB PO SCH (16:00)
[2016-09-09] MEDS: PANTOPRAZOLE SODIUM 40 MG VIAL IV PUSH SCH (16:43)
[2016-09-09] MEDS: WARFARIN SOD 2 MG TAB PO SCH (16:43)
--- NOTE | 2016-09-09 17:05 | HHI.IDPN ---
Note Infectious Disease Note Patient is very alert. Up in chair. Afebrile. denies chills. No loose stools. Seen for LE cellulitis. PAST MEDICAL HISTORY 1. History of bilateral lower extremity cellulitis in March 2016 with Pseudomonas maltophilia and MRSA. 2. History of peripheral arterial disease. 3. Diabetes mellitus 4. Hypertension 5. Morbid obesity 6. History of C-difficile. 7. Tonsillectomy ALLERGIES SULFA MEDICATIONS 1. Piperacillin/Tazobactam 2. Daptomycin. OBJECTIVE: Vital Signs Date Time Temp Pulse Resp B/P Pulse Ox O2 Delivery O2 Flow Rate FiO2 09/09/16 12:43 96 21 09/09/16 12:00 97.3 58 20 113/68 98 09/09/16 04:00 98.0 71 20 135/63 98 09/09/16 00:01 98.3 64 20 124/60 95 09/08/16 21:40 62 09/08/16 20:00 97.6 69 19 146/66 96 09/08/16 18:16 97 21 09/08/16 09/08/16 09/09/16 15:00 23:00 07:00 Intake Total 1515 ml 480 ml 895 ml Output Total 800 ml 450 ml Balance 715 ml 30 ml 895 ml Intake Oral 480 ml 480 ml 120 ml IV Total 1035 ml 775 ml Output Urine Total 800 ml 450 ml # Bowel Movements 2 2 2 Laboratory Tests Test 09/08/16 09/09/16 06:37 07:36 White Blood Count 8.9 TH/MM3 9.3 TH/MM3 Red Blood Count 4.40 MIL/MM3 4.67 MIL/MM3 Hemoglobin 13.6 GM/DL 14.5 GM/DL Hematocrit 41.1 % 43.8 % Mean Corpuscular Volume 93.3 FL 93.8 FL Mean Corpuscular Hemoglobin 30.9 PG 31.1 PG Mean Corpuscular Hemoglobin 33.1 % 33.1 % Concent Red Cell Distribution Width 13.5 % 13.8 % Platelet Count 258 TH/MM3 244 TH/MM3 Mean Platelet Volume 6.9 FL 7.0 FL Neutrophils (%) (Auto) 71.5 % 71.0 % Lymphocytes (%) (Auto) 14.5 % 15.9 % Monocytes (%) (Auto) 9.8 % 9.1 % Eosinophils (%) (Auto) 3.7 % 3.5 % Basophils (%) (Auto) 0.5 % 0.5 % Neutrophils # (Auto) 6.4 TH/MM3 6.6 TH/MM3 Lymphocytes # (Auto) 1.3 TH/MM3 1.5 TH/MM3 Monocytes # (Auto) 0.9 TH/MM3 0.8 TH/MM3 Eosinophils # (Auto) 0.3 TH/MM3 0.3 TH/MM3 Basophils # (Auto) 0.0 TH/MM3 0.0 TH/MM3 CBC Comment DIFF FINAL DIFF FINAL Differential Comment Laboratory Tests Test 09/08/16 09/08/16 09/09/16 00:09 06:37 07:36 Lactic Acid Level 1.9 mmol/L Sodium Level 136 MEQ/L 140 MEQ/L Potassium Level 4.2 MEQ/L 4.1 MEQ/L Chloride Level 101 MEQ/L 105 MEQ/L Carbon Dioxide Level 27.9 MEQ/L 27.4 MEQ/L Anion Gap 7 MEQ/L 8 MEQ/L Blood Urea Nitrogen 45 MG/DL 31 MG/DL Creatinine 1.83 MG/DL 1.69 MG/DL Estimat Glomerular Filtration 36 ML/MIN 39 ML/MIN Rate Random Glucose 189 MG/DL 136 MG/DL Calcium Level 8.7 MG/DL 8.7 MG/DL Microbiology Date/Time Procedure Status Source Growth 09/07/16 10:05 Aerobic Blood Culture - Preliminary Resulted Blood Peripheral NO GROWTH IN 2 DAYS 09/07/16 10:05 Anaerobic Blood Culture - Preliminary Resulted Blood Peripheral NO GROWTH IN 2 DAYS 09/07/16 10:15 Aerobic Blood Culture - Preliminary Resulted Blood Peripheral NO GROWTH IN 2 DAYS 09/07/16 10:15 Anaerobic Blood Culture - Preliminary Resulted Blood Peripheral NO GROWTH IN 2 DAYS PHYSICAL EXAMINATION GENERAL: No acute distress. Aleert and oriented. HEENT: No icterus. Oropharynx no visible lesions. NECK: Supple without adenopathy. LUNGS: Decreased breath sounds. HEART: Regular S1 and S2. No audible murmurs. ABDOMEN: Bowel sounds present, soft, markedly obese, nontender. EXTREMITIES: The left lower extremity erythema at the thigh has improved significantly. The left leg below the knee is still very erythematous but less warm. Bilateral 3+ edema at the foot and tibia. NEUROLOGIC: Nonfocal. IMPRESSION 1. Bilateral lower extremity cellulitis and edema. Slow to respond to antibiotics. 2. Diabetes mellitus 3. Acute on chronic kidney disease. 4. Failed outpatient antibiotic therapy. RECOMMENDATIONS 1. Continue piperacillin/tazobactam. 2. Continue Daptomycin, adjusted for renal function. 3. Wrap both legs in jie wraps. 4. Follow response of antibiotic treatment. Eric Hunter MD Sep 09, 2016 17:05
[2016-09-09] MEDS: DAPTOmycin INJ 500 MG in SODIUM CHLORIDE 0.9% INJ 100 ML IV SCH (22:47)
[2016-09-10] VITALS (9 sets, daily range): BP systolic 116–158; BP diastolic 63–83; PULSE 60–88; RESP 18–20; TEMP 97.2–98; O2SAT 95–98
[2016-09-10] MEDS: PIPERACIL-TAZO 2.25 GM PREMIX 50 ML IV SCH ×3 (00:31→12:55)
[2016-09-10] MEDS: INSULIN ASPART SUPPLEMENTAL SCALE SQ SCH ×4 (06:55→21:45)
[2016-09-10 07:03] LABS: PROTHROMBIN TIME - PATIENT 10.8 SEC (9.8-11.6)
[2016-09-10 07:06] LABS: AUTOMATED NEUTROPHIL # 5.6 TH/MM3 (1.8-7.7); BASOPHIL # 0.1 TH/MM3 (0-0.2); BASOPHIL % 0.6 % (0.0-2.0); EOSINOPHIL # 0.3 TH/MM3 (0-0.4); EOSINOPHIL % 3.6 % (0.0-4.0); LYMPH % 21.8 % (9.0-44.0); LYMPHOCYTE # 1.9 TH/MM3 (1.0-4.8); MEAN CELL VOLUME 94.5 FL (80.0-100.0); MEAN CORPUSCULAR HEMOGLOBIN 31.2 PG (27.0-34.0); MEAN CORPUSCULAR HGB CONC 33.1 % (32.0-36.0); MONO % 10.2 % (0.0-8.0); NEUT % 63.8 % (16.0-70.0); PLATELET COUNT 302 TH/MM3 (150-450); RED BLOOD COUNT 4.45 MIL/MM3 (4.50-5.90); RED CELL DISTRIBUTION WIDTH 13.9 % (11.6-17.2); WHITE BLOOD COUNT 8.8 TH/MM3 (4.0-11.0)
[2016-09-10 07:07] LABS: HEMO FLAGS AUTO DIFF
[2016-09-10 07:09] LABS: BICARBONATE 24.3 MEQ/L (21.0-32.0); POTASSIUM 4.4 MEQ/L (3.5-5.1)
[2016-09-10 07:51] LABS: SCAN/DIFF AUTO DIFF CONFIRMED
[2016-09-10 07:52] LABS: PLATELET ESTIMATE SMEAR NORMAL (NORMAL); PLATELET MORPHOLOGY NORMAL (NORMAL)
[2016-09-10] MEDS: SODIUM CHLORIDE 0.9% FLUSH 5 ML FLUSH FLUSH SCH ×2 (09:00→21:43)
[2016-09-10] MEDS: ISOSORBIDE MONONITRATE 30 MG TAB PO SCH (10:55)
[2016-09-10] MEDS: METOPROLOL TARTRATE 25 MG TAB PO SCH ×2 (10:55→21:43)
[2016-09-10] MEDS: CLOTRIMAZOLE 1% CREAM 15 GM TOPICAL SCH ×2 (11:00→21:44)
--- NOTE | 2016-09-10 12:18 | HHI.FPPN ---
Subjective Remarks AGITATED D/W RN LABS REVIEWED [employer] REPORTS REVIEWED Objective Vitals Vital Signs Date Time Temp Pulse Resp B/P Pulse Ox O2 Delivery O2 Flow Rate FiO2 09/10/16 08:00 97.7 73 20 158/83 97 09/10/16 04:00 97.4 60 18 116/68 98 09/10/16 04:00 Room Air 09/10/16 00:00 98.0 67 18 142/63 98 09/10/16 00:00 Room Air 09/09/16 20:27 21 09/09/16 20:04 67 09/09/16 20:00 97.7 72 20 128/8 99 09/09/16 20:00 Room Air 09/09/16 16:00 97.4 57 20 148/78 99 09/09/16 12:43 96 21 I/O 09/09/16 09/09/16 09/09/16 09/10/16 09/10/16 09/10/16 07:00 15:00 23:00 07:00 15:00 23:00 Intake Total 895 ml 925 ml 240 ml 240 ml Output Total 175 ml 400 ml 300 ml Balance 895 ml 750 ml -160 ml -60 ml Intake Oral 120 ml 480 ml 240 ml 240 ml IV Total 775 ml 445 ml Output Urine Total 175 ml 400 ml 300 ml # Bowel Movements 2 0 3 0 Result Diagram: 09/10/1655 09/10/16 0555 Objective Remarks GENERAL: SKIN: Warm and dry. HEAD: Atraumatic. Normocephalic. EYES: Pupils equal and round. No scleral icterus. No injection or drainage. ENT: No nasal bleeding or discharge. Mucous membranes pink and moist. NECK: Trachea midline. No JVD. CARDIOVASCULAR: Regular rate and rhythm. RESPIRATORY: No accessory muscle use. Clear to auscultation. Breath sounds equal bilaterally. GASTROINTESTINAL: Abdomen soft, non-tender, nondistended. Hepatic and splenic margins not palpable. MUSCULOSKELETAL: 3 LE EDEMA, SEVERE LLE CELLULITIS TO MID THIGH, MILD ON R NEUROLOGICAL: Awake and alert. No obvious cranial nerve deficits. Motor grossly within normal limits. 1 out of 5 muscle strength in the arms and legs. Normal speech. PSYCHIATRIC: Appropriate mood and affect; insight and judgment normal. Medications and IVs Current Medications Medications (Trade) Dose Ordered Sig/Abiola Route Start Time Stop Time Status Last Admin (Tears Naturale Opth Soln) 1 drop Q6H PRN EACH EYE 09/07/16 13:00 (Imdur) 30 mg DAILY PO 09/08/16 09:00 09/10/16 10:55 (Lopressor) 12.5 mg BID PO 09/07/16 21:00 09/10/16 10:55 (Ultram) 50 mg Q4HR PRN PO 09/07/16 13:00 Hydroxyzine HCl 10 mg 10 mg DAILY PRN PO 09/08/16 09:00 09/08/16 04:21 (NS 1000 ml Inj) 1,000 ml @ 42 mls/hr [id number] IV 09/07/16 12:02 09/09/16 11:40 (NS Flush) 2 ml UNSCH PRN FLUSH 09/07/16 12:15 (NS Flush) 2 ml BID FLUSH 09/07/16 21:00 09/09/16 08:47 (Tylenol) 650 mg Q4H PRN PO 09/07/16 13:00 (Zofran Inj) 4 mg Q6H PRN IVP 09/07/16 13:00 (Dulcolax Supp) 10 mg DAILY PRN [place] 09/07/16 12:15 (Milk Of Magnesia Liq) 30 ml Q12HR PRN PO 09/07/16 13:00 (Ambien) 5 mg HS PRN PO 09/07/16 21:00 (Narcan Inj) 0.4 mg UNSCH PRN IV 09/07/16 12:15 ([place] 5-325 Mg) 1 tab Q4H PRN PO 09/07/16 13:00 09/09/16 22:47 (Ativan) 0.5 mg Q8H PRN PO 09/07/16 13:00 Clonidine 0.1 mg 0.1 mg Q6H PRN PO 09/07/16 13:00 (Coumadin Consult Pharmacy) 0 ml @ 0 mls/hr UNSCH OTHER 09/07/16 12:15 (Protonix Inj) 40 mg Q24H IV PUSH 09/07/16 15:00 09/09/16 16:43 (D50w (Vial) Inj) 25 ml UNSCH PRN IV PUSH 09/07/16 12:15 Glucagon 1 mg 1 mg UNSCH PRN OTHER 09/07/16 12:15 (Zosyn 2.25 Gm Premix) 50 ml @ 100 mls/hr Q6H IV 09/07/16 18:00 09/10/16 05:03 Clotrimazole 1 applic 1 applic Q12HR TOPICAL 09/07/16 21:00 09/10/16 11:00 (Cubicin Inj/NS Inj) 100 ml @ 200 mls/hr Q24H IV 09/09/16 21:00 09/09/16 22:47 (Coumadin) 3 mg DAILY@16 PO 09/10/16 16:00 (Coumadin) 3 mg ONCE PO 09/10/16 16:00 09/10/16 21:00 A/P Assessment and Plan SEVERE SEPSIS, RESOLVED LACTIC ACIDOSIS SEVERE LLE CELLULITIS CHRONIC EDEMA DM DIARRHEA, HISTORY OF C DIF MOISÉS COPD AF CHF GOUT MRSA HX PLAN: IV ABX IVF BLOOD CULTURES UA C/S C DIF ID CONSULT PT OT ST INSULIN COUMADIN, FOLLOWUP INR'S 3 Per [place] MD Sep 10, 2016 12:18
[2016-09-10] MEDS: SODIUM CHLOR 0.9% 1000 ML INJ 1,000 ML IV SCH (12:56)
--- NOTE | 2016-09-10 15:05 | HHI.IDPN ---
Note Infectious Disease Note Patient is very sleepy. Afebrile. Notes achiness at the legs. Denies chills. Seen for LE cellulitis. PAST MEDICAL HISTORY 1. History of bilateral lower extremity cellulitis in March 2016 with Pseudomonas maltophilia and MRSA. 2. History of peripheral arterial disease. 3. Diabetes mellitus 4. Hypertension 5. Morbid obesity 6. History of C-difficile. 7. Tonsillectomy ALLERGIES SULFA MEDICATIONS 1. Piperacillin/Tazobactam 2. Daptomycin. OBJECTIVE: Vital Signs Date Time Temp Pulse Resp B/P Pulse Ox O2 Delivery O2 Flow Rate FiO2 09/10/16 08:40 Room Air 09/10/16 08:00 97.7 73 20 158/83 97 09/10/16 04:00 97.4 60 18 116/68 98 09/10/16 04:00 Room Air 09/10/16 00:00 98.0 67 18 142/63 98 09/10/16 00:00 Room Air 09/09/16 20:27 21 09/09/16 20:04 67 09/09/16 20:00 97.7 72 20 128/8 99 09/09/16 20:00 Room Air 09/09/16 16:00 97.4 57 20 148/78 99 09/09/16 09/09/16 09/10/16 15:00 23:00 07:00 Intake Total 925 ml 240 ml 240 ml Output Total 175 ml 400 ml 300 ml Balance 750 ml -160 ml -60 ml Intake Oral 480 ml 240 ml 240 ml IV Total 445 ml Output Urine Total 175 ml 400 ml 300 ml # Bowel Movements 0 3 0 Laboratory Tests Test 09/09/16 09/10/16 07:36 05:55 White Blood Count 9.3 TH/MM3 8.8 TH/MM3 Red Blood Count 4.67 MIL/MM3 4.45 MIL/MM3 Hemoglobin 14.5 GM/DL 13.9 GM/DL Hematocrit 43.8 % 42.0 % Mean Corpuscular Volume 93.8 FL 94.5 FL Mean Corpuscular Hemoglobin 31.1 PG 31.2 PG Mean Corpuscular Hemoglobin 33.1 % 33.1 % Concent Red Cell Distribution Width 13.8 % 13.9 % Platelet Count 244 TH/MM3 302 TH/MM3 Mean Platelet Volume 7.0 FL 7.0 FL Neutrophils (%) (Auto) 71.0 % 63.8 % Lymphocytes (%) (Auto) 15.9 % 21.8 % Monocytes (%) (Auto) 9.1 % 10.2 % Eosinophils (%) (Auto) 3.5 % 3.6 % Basophils (%) (Auto) 0.5 % 0.6 % Neutrophils # (Auto) 6.6 TH/MM3 5.6 TH/MM3 Lymphocytes # (Auto) 1.5 TH/MM3 1.9 TH/MM3 Monocytes # (Auto) 0.8 TH/MM3 0.9 TH/MM3 Eosinophils # (Auto) 0.3 TH/MM3 0.3 TH/MM3 Basophils # (Auto) 0.0 TH/MM3 0.1 TH/MM3 CBC Comment DIFF FINAL AUTO DIFF Differential Comment AUTO DIFF CONFIRMED Platelet Estimate NORMAL Platelet Morphology Comment NORMAL Laboratory Tests Test 09/09/16 09/10/16 07:36 05:55 Sodium Level 140 MEQ/L 137 MEQ/L Potassium Level 4.1 MEQ/L 4.4 MEQ/L Chloride Level 105 MEQ/L 103 MEQ/L Carbon Dioxide Level 27.4 MEQ/L 24.3 MEQ/L Anion Gap 8 MEQ/L 10 MEQ/L Blood Urea Nitrogen 31 MG/DL 30 MG/DL Creatinine 1.69 MG/DL 1.81 MG/DL Estimat Glomerular Filtration 39 ML/MIN 36 ML/MIN Rate Random Glucose 136 MG/DL 164 MG/DL Calcium Level 8.7 MG/DL 8.9 MG/DL PHYSICAL EXAMINATION GENERAL: No acute distress. Somnolent. HEENT: No icterus. Oropharynx no visible lesions. NECK: Supple without adenopathy. LUNGS: Decreased breath sounds. HEART: Regular S1 and S2. No audible murmurs. ABDOMEN: Bowel sounds present, soft, markedly obese, nontender. EXTREMITIES: The left lower extremity erythema at the thigh has improved significantly. The left leg below the knee is still very erythematous but less warm. Bilateral decreased 2+ edema at the foot and tibia. Mild erythema at the r. leg. NEUROLOGIC: Nonfocal. IMPRESSION 1. Bilateral lower extremity cellulitis and edema. Slow to respond to antibiotics. 2. Diabetes mellitus 3. Acute on chronic kidney disease. 4. Failed outpatient antibiotic therapy. RECOMMENDATIONS 1. Stop piperacillin/tazobactam. 2. Continue Daptomycin. 3. Continue to Wrap both legs in jie wraps. 4. Follow response of antibiotic treatment. Dontfraid,Eric F MD Sep 10, 2016 15:05
[2016-09-10] MEDS ORDERED: WARFARIN SOD 3 MG TAB PO SCH (16:00)
[2016-09-10] MEDS: WARFARIN SOD 3 MG TAB PO SCH (17:20)
[2016-09-10] MEDS: PANTOPRAZOLE SODIUM 40 MG VIAL IV PUSH SCH (17:21)
[2016-09-10] MEDS: DAPTOmycin INJ 500 MG in SODIUM CHLORIDE 0.9% INJ 100 ML IV SCH (21:44)
[2016-09-11] VITALS (8 sets, daily range): BP systolic 122–132; BP diastolic 57–83; PULSE 60–75; RESP 12–30; TEMP 97.2–98.2; O2SAT 95–97
[2016-09-11] MEDS: ACETAMINOPHEN/HYDROcodone 325 MG/5 MG TAB PO PRN (05:02)
[2016-09-11] MEDS: INSULIN ASPART SUPPLEMENTAL SCALE SQ SCH ×4 (05:02→21:27)
[2016-09-11 06:45] LABS: PROTHROMBIN TIME - PATIENT 11.5 SEC (9.8-11.6)
[2016-09-11] MEDS: SODIUM CHLORIDE 0.9% FLUSH 5 ML FLUSH FLUSH SCH ×2 (09:00→21:24)
[2016-09-11] MEDS: ISOSORBIDE MONONITRATE 30 MG TAB PO SCH (10:11)
[2016-09-11] MEDS: CLOTRIMAZOLE 1% CREAM 15 GM TOPICAL SCH ×2 (10:12→21:24)
[2016-09-11] MEDS: METOPROLOL TARTRATE 25 MG TAB PO SCH ×2 (10:12→21:27)
[2016-09-11] MEDS: SODIUM CHLOR 0.9% 1000 ML INJ 1,000 ML IV SCH (12:11)
--- NOTE | 2016-09-11 12:57 | HHI.FPPN ---
Subjective Remarks AGITATED D/W RN Objective Vitals Vital Signs Date Time Temp Pulse Resp B/P Pulse Ox O2 Delivery O2 Flow Rate FiO2 09/11/16 12:00 98.2 66 20 127/60 97 09/11/16 10:34 96 21 09/11/16 08:00 98.1 74 12 122/70 95 09/11/16 04:00 97.6 66 20 131/83 97 09/11/16 03:07 97 09/11/16 00:00 97.2 60 18 123/57 96 09/10/16 22:15 98 09/10/16 21:47 Room Air 09/10/16 20:12 72 09/10/16 20:00 97.5 88 20 151/68 98 09/10/16 16:00 97.6 72 20 125/69 97 I/O 09/10/16 09/10/16 09/10/16 09/11/16 09/11/16 09/11/16 07:00 15:00 23:00 07:00 15:00 23:00 Intake Total 240 ml 720 ml 240 ml 360 ml Output Total 300 ml 500 ml 300 ml 700 ml Balance -60 ml 220 ml -60 ml -340 ml Intake Oral 240 ml 720 ml 240 ml 360 ml Output Urine Total 300 ml 500 ml 300 ml 700 ml # Bowel Movements 0 3 0 1 Result Diagram: 09/10/16 0555 09/10/16 0555 Objective Remarks GENERAL: SKIN: Warm and dry. HEAD: Atraumatic. Normocephalic. EYES: Pupils equal and round. No scleral icterus. No injection or drainage. ENT: No nasal bleeding or discharge. Mucous membranes pink and moist. NECK: Trachea midline. No JVD. CARDIOVASCULAR: Regular rate and rhythm. RESPIRATORY: No accessory muscle use. Clear to auscultation. Breath sounds equal bilaterally. GASTROINTESTINAL: Abdomen soft, non-tender, nondistended. Hepatic and splenic margins not palpable. MUSCULOSKELETAL: 3 LE EDEMA, SEVERE LLE CELLULITIS TO MID THIGH, MILD ON R NEUROLOGICAL: Awake and alert. No obvious cranial nerve deficits. Motor grossly within normal limits. 1 out of 5 muscle strength in the arms and legs. Normal speech. PSYCHIATRIC: Appropriate mood and affect; insight and judgment normal. Medications and IVs Current Medications Medications (Trade) Dose Ordered Sig/Abiola Route Start Time Stop Time Status Last Admin (Tears Naturale Opth Soln) 1 drop Q6H PRN EACH EYE 09/07/16 13:00 (Imdur) 30 mg DAILY PO 09/08/16 09:00 09/11/16 10:11 (Lopressor) 12.5 mg BID PO 09/07/16 21:00 09/11/16 10:12 (Ultram) 50 mg Q4HR PRN PO 09/07/16 13:00 Hydroxyzine HCl 10 mg 10 mg DAILY PRN PO 09/08/16 09:00 09/08/16 04:21 (NS 1000 ml Inj) 1,000 ml @ 42 mls/hr [id number] IV 09/07/16 12:02 09/11/16 12:11 (NS Flush) 2 ml UNSCH PRN FLUSH 09/07/16 12:15 (NS Flush) 2 ml BID FLUSH 09/07/16 21:00 09/10/16 21:43 (Tylenol) 650 mg Q4H PRN PO 09/07/16 13:00 (Zofran Inj) 4 mg Q6H PRN IVP 09/07/16 13:00 (Dulcolax Supp) 10 mg DAILY PRN [place] 09/07/16 12:15 (Milk Of Magnesia Liq) 30 ml Q12HR PRN PO 09/07/16 13:00 (Ambien) 5 mg HS PRN PO 09/07/16 21:00 (Narcan Inj) 0.4 mg UNSCH PRN IV 09/07/16 12:15 ([place] 5-325 Mg) 1 tab Q4H PRN PO 09/07/16 13:00 09/11/16 05:02 (Ativan) 0.5 mg Q8H PRN PO 09/07/16 13:00 Clonidine 0.1 mg 0.1 mg Q6H PRN PO 09/07/16 13:00 (Coumadin Consult Pharmacy) 0 ml @ 0 mls/hr UNSCH OTHER 09/07/16 12:15 (Protonix Inj) 40 mg Q24H IV PUSH 09/07/16 15:00 09/10/16 17:21 (D50w (Vial) Inj) 25 ml UNSCH PRN IV PUSH 09/07/16 12:15 (Glucagon Inj) 1 mg UNSCH PRN OTHER 09/07/16 12:15 Clotrimazole 1 applic 1 applic Q12HR TOPICAL 09/07/16 21:00 09/11/16 10:12 (Cubicin Inj/NS Inj) 100 ml @ 200 mls/hr Q24H IV 09/09/16 21:00 09/10/16 21:44 (Coumadin) 3 mg DAILY@16 PO 09/10/16 16:00 09/10/16 17:20 (Coumadin) 5 mg ONCE PO 09/11/16 16:00 09/11/16 21:00 A/P Assessment and Plan SEVERE SEPSIS, RESOLVED LACTIC ACIDOSIS SEVERE LLE CELLULITIS CHRONIC EDEMA DM DIARRHEA, HISTORY OF C DIF MOISÉS COPD AF CHF GOUT MRSA HX PLAN: IV ABX IVF BLOOD CULTURES UA C/S C DIF ID CONSULT PT OT ST INSULIN COUMADIN, FOLLOWUP INR'S 3 Per [place] MD Sep 11, 2016 12:57
--- NOTE | 2016-09-11 15:14 | HHI.IDPN ---
Note Infectious Disease Note Patient feels "blah" lousy. Low energy. Poor appetite. Want's to eat. Says he feels achy. Sitting on side of bed. Says he feels dizzy. Afebrile. Feels his skin is itching particularly at the arms. Denies chills. Seen for LE cellulitis. PAST MEDICAL HISTORY 1. History of bilateral lower extremity cellulitis in March 2016 with Pseudomonas maltophilia and MRSA. 2. History of peripheral arterial disease. 3. Diabetes mellitus 4. Hypertension 5. Morbid obesity 6. History of C-difficile. 7. Tonsillectomy ALLERGIES SULFA ANTIBIOTICS: Daptomycin. Current Medications Medications (Trade) Dose Ordered Sig/Abiola Route PRN Reason Start Time Stop Time Status Last Admin Dose Admin Artificial Tears (Tears Naturale Opth Soln) 1 drop Q6H PRN EACH EYE DRY EYE 09/07/16 13:00 Isosorbide Mononitrate (Imdur) 30 mg DAILY PO 09/08/16 09:00 09/11/16 10:11 Metoprolol Tartrate (Lopressor) 12.5 mg BID PO 09/07/16 21:00 09/11/16 10:12 Tramadol HCl (Ultram) 50 mg Q4HR PRN PO PAIN SCALE 4 TO 10 09/07/16 13:00 Hydroxyzine HCl 10 mg 10 mg DAILY PRN PO ALLERGIES 09/08/16 09:00 09/08/16 04:21 Sodium Chloride (NS 1000 ml Inj) 1,000 ml @ 42 mls/hr [id number] IV 09/07/16 12:02 09/11/16 12:11 IV Flush (NS Flush) 2 ml UNSCH PRN FLUSH FLUSH AFTER USING IV ACCESS 09/07/16 12:15 IV Flush (NS Flush) 2 ml BID FLUSH 09/07/16 21:00 09/10/16 21:43 Acetaminophen (Tylenol) 650 mg Q4H PRN PO TEMP > 100.4 09/07/16 13:00 Ondansetron HCl (Zofran Inj) 4 mg Q6H PRN IVP NAUSEA OR VOMITING 09/07/16 13:00 Bisacodyl (Dulcolax Supp) 10 mg DAILY PRN [place] CONSTIPATION 09/07/16 12:15 Magnesium Hydroxide (Milk Of Magnesia Liq) 30 ml Q12HR PRN PO CONSTIPATION 09/07/16 13:00 Zolpidem Tartrate (Ambien) 5 mg HS PRN PO INSOMNIA 09/07/16 21:00 Naloxone HCl (Narcan Inj) 0.4 mg UNSCH PRN IV SEE LABEL COMMENTS 09/07/16 12:15 Acetaminophen/ Hydrocodone Bitart ([place] 5-325 Mg) 1 tab Q4H PRN PO PAIN GREATER THAN 5 09/07/16 13:00 09/11/16 05:02 Lorazepam (Ativan) 0.5 mg Q8H PRN PO SEVERE ANXIETY OR AGITATION 09/07/16 13:00 Clonidine 0.1 mg 0.1 mg Q6H PRN PO SBP>160, DBP>90 09/07/16 13:00 Pharmacy Profile Note (Coumadin Consult Pharmacy) 0 ml @ 0 mls/hr UNSCH OTHER 09/07/16 12:15 Pantoprazole Sodium (Protonix Inj) 40 mg Q24H IV PUSH 09/07/16 15:00 09/10/16 17:21 Dextrose (D50w (Vial) Inj) 25 ml UNSCH PRN IV PUSH HYPOGLYCEMIA-SEE COMMENTS 09/07/16 12:15 Glucagon (Glucagon Inj) 1 mg UNSCH PRN OTHER HYPOGLYCEMIA-SEE COMMENTS 09/07/16 12:15 Clotrimazole 1 applic 1 applic Q12HR TOPICAL 09/07/16 21:00 09/11/16 10:12 Daptomycin/Sodium Chloride (Cubicin Inj/NS Inj) 100 ml @ 200 mls/hr Q24H IV 09/09/16 21:00 09/10/16 21:44 Warfarin Sodium (Coumadin) 3 mg DAILY@16 PO 09/10/16 16:00 09/10/16 17:20 Warfarin Sodium (Coumadin) 5 mg ONCE PO 09/11/16 16:00 09/11/16 21:00 OBJECTIVE: Vital Signs Date Time Temp Pulse Resp B/P Pulse Ox O2 Delivery O2 Flow Rate FiO2 09/11/16 12:00 98.2 66 20 127/60 97 09/11/16 10:34 96 21 09/11/16 08:00 98.1 74 12 122/70 95 09/11/16 04:00 97.6 66 20 131/83 97 09/11/16 03:07 97 09/11/16 00:00 97.2 60 18 123/57 96 09/10/16 22:15 98 09/10/16 21:47 Room Air 09/10/16 20:12 72 09/10/16 20:00 97.5 88 20 151/68 98 09/10/16 16:00 97.6 72 20 125/69 97 Laboratory Tests Test 09/10/16 05:55 White Blood Count 8.8 TH/MM3 Red Blood Count 4.45 MIL/MM3 Hemoglobin 13.9 GM/DL Hematocrit 42.0 % Mean Corpuscular Volume 94.5 FL Mean Corpuscular Hemoglobin 31.2 PG Mean Corpuscular Hemoglobin 33.1 % Concent Red Cell Distribution Width 13.9 % Platelet Count 302 TH/MM3 Mean Platelet Volume 7.0 FL Neutrophils (%) (Auto) 63.8 % Lymphocytes (%) (Auto) 21.8 % Monocytes (%) (Auto) 10.2 % Eosinophils (%) (Auto) 3.6 % Basophils (%) (Auto) 0.6 % Neutrophils # (Auto) 5.6 TH/MM3 Lymphocytes # (Auto) 1.9 TH/MM3 Monocytes # (Auto) 0.9 TH/MM3 Eosinophils # (Auto) 0.3 TH/MM3 Basophils # (Auto) 0.1 TH/MM3 CBC Comment AUTO DIFF Differential Comment AUTO DIFF CONFIRMED Platelet Estimate NORMAL Platelet Morphology Comment NORMAL Laboratory Tests Test 09/10/16 05:55 Sodium Level 137 MEQ/L Potassium Level 4.4 MEQ/L Chloride Level 103 MEQ/L Carbon Dioxide Level 24.3 MEQ/L Anion Gap 10 MEQ/L Blood Urea Nitrogen 30 MG/DL Creatinine 1.81 MG/DL Estimat Glomerular Filtration 36 ML/MIN Rate Random Glucose 164 MG/DL Calcium Level 8.9 MG/DL PHYSICAL EXAMINATION GENERAL: No acute distress. Somnolent. HEENT: No icterus. Oropharynx no visible lesions. NECK: Supple without adenopathy. LUNGS: Decreased breath sounds. HEART: Regular S1 and S2. No audible murmurs. ABDOMEN: Bowel sounds present, soft, markedly obese, nontender. EXTREMITIES: The left lower extremity erythema at the thigh has improved significantly. The left leg below the knee is still very erythematous, less warm. Bilateral decreased 2+ edema at the foot and tibia. Mild erythema at the r. leg. NEUROLOGIC: Nonfocal. SKIN: palms are peeling. No discreet rash. IMPRESSION 1. Bilateral lower extremity cellulitis and edema. Slow to respond to antibiotics. 2. Diabetes mellitus 3. Acute on chronic kidney disease. 4. Failed outpatient antibiotic therapy. 5. Itching. ? antibiotics. Zosyn stopped yesterday. RECOMMENDATIONS 1. Continue Daptomycin. 2. Continue to Wrap both legs in jie wraps. had pooling of edema because the legs were not wrapped properly. 3. Follow response of antibiotic treatment. 4. Monitor itching. Discussed with RN. Eric Hunter MD Sep 11, 2016 15:14
[2016-09-11] MEDS ORDERED: WARFARIN SOD 5 MG TAB PO SCH (16:00)
[2016-09-11] MEDS: PANTOPRAZOLE SODIUM 40 MG VIAL IV PUSH SCH (16:09)
[2016-09-11] MEDS: WARFARIN SOD 3 MG TAB PO SCH (16:09)
[2016-09-11] MEDS: DAPTOmycin INJ 500 MG in SODIUM CHLORIDE 0.9% INJ 100 ML IV SCH (21:24)
[2016-09-12] VITALS (8 sets, daily range): BP systolic 125–161; BP diastolic 61–83; PULSE 63–90; RESP 20–22; TEMP 97.4–98.9; O2SAT 95–98
[2016-09-12] MEDS: INSULIN ASPART SUPPLEMENTAL SCALE SQ SCH ×4 (05:35→21:22)
[2016-09-12 07:39] LABS: INTERNATIONAL NORMALIZED RATIO 1.1 RATIO
[2016-09-12] MEDS: ISOSORBIDE MONONITRATE 30 MG TAB PO SCH (08:38)
[2016-09-12] MEDS: METOPROLOL TARTRATE 25 MG TAB PO SCH ×2 (08:38→21:16)
[2016-09-12] MEDS: SODIUM CHLORIDE 0.9% FLUSH 5 ML FLUSH FLUSH SCH ×2 (08:43→21:00)
--- NOTE | 2016-09-12 13:40 | HHI.FPPN ---
Subjective Remarks C/O LEG PAIN C/O EDEMA C/O CELLULITIS OF LEGS D/W RN Objective Vitals Vital Signs Date Time Temp Pulse Resp B/P Pulse Ox O2 Delivery O2 Flow Rate FiO2 09/12/16 13:06 97 21 09/12/16 12:06 97.9 70 22 132/65 96 09/12/16 08:07 98.0 71 22 161/79 98 09/12/16 08:00 72 09/12/16 08:00 96 Room Air 21 09/12/16 04:00 97.8 69 20 141/83 97 09/12/16 00:00 98.2 63 22 143/71 98 09/11/16 21:15 Room Air 09/11/16 20:00 98.0 75 20 131/76 95 09/11/16 16:00 97.6 71 30 132/68 96 I/O 09/11/16 09/11/16 09/11/16 09/12/16 09/12/16 09/12/16 07:00 15:00 23:00 07:00 15:00 23:00 Intake Total 360 ml 240 ml 360 ml 360 ml Output Total 700 ml 250 ml 400 ml Balance -340 ml 240 ml 110 ml -40 ml Intake Oral 360 ml 240 ml 360 ml 360 ml Output Urine Total 700 ml 250 ml 400 ml # Voids 8 # Bowel Movements 1 0 1 2 Result Diagram: 09/10/16 0555 09/10/16 0555 Objective Remarks GENERAL: SKIN: Warm and dry. HEAD: Atraumatic. Normocephalic. EYES: Pupils equal and round. No scleral icterus. No injection or drainage. ENT: No nasal bleeding or discharge. Mucous membranes pink and moist. NECK: Trachea midline. No JVD. CARDIOVASCULAR: Regular rate and rhythm. RESPIRATORY: No accessory muscle use. Clear to auscultation. Breath sounds equal bilaterally. GASTROINTESTINAL: Abdomen soft, non-tender, nondistended. Hepatic and splenic margins not palpable. MUSCULOSKELETAL: 3 LE EDEMA, SEVERE LLE CELLULITIS TO MID THIGH, MILD ON R NEUROLOGICAL: Awake and alert. No obvious cranial nerve deficits. Motor grossly within normal limits. 1 out of 5 muscle strength in the arms and legs. Normal speech. PSYCHIATRIC: Appropriate mood and affect; insight and judgment normal. Medications and IVs Current Medications Medications (Trade) Dose Ordered Sig/Abiola Route Start Time Stop Time Status Last Admin (Tears Naturale Opth Soln) 1 drop Q6H PRN EACH EYE 09/07/16 13:00 (Imdur) 30 mg DAILY PO 09/08/16 09:00 09/12/16 08:38 (Lopressor) 12.5 mg BID PO 09/07/16 21:00 09/12/16 08:38 (Ultram) 50 mg Q4HR PRN PO 09/07/16 13:00 Hydroxyzine HCl 10 mg 10 mg DAILY PRN PO 09/08/16 09:00 09/08/16 04:21 (NS 1000 ml Inj) 1,000 ml @ 42 mls/hr [id number] IV 09/07/16 12:02 09/11/16 12:11 (NS Flush) 2 ml UNSCH PRN FLUSH 09/07/16 12:15 (NS Flush) 2 ml BID FLUSH 09/07/16 21:00 09/12/16 08:43 (Tylenol) 650 mg Q4H PRN PO 09/07/16 13:00 (Zofran Inj) 4 mg Q6H PRN IVP 09/07/16 13:00 (Dulcolax Supp) 10 mg DAILY PRN [place] 09/07/16 12:15 (Milk Of Magndomo Liq) 30 ml Q12HR PRN PO 09/07/16 13:00 (Ambien) 5 mg HS PRN PO 09/07/16 21:00 (Narcan Inj) 0.4 mg UNSCH PRN IV 09/07/16 12:15 ([place] 5-325 Mg) 1 tab Q4H PRN PO 09/07/16 13:00 09/11/16 05:02 (Ativan) 0.5 mg Q8H PRN PO 09/07/16 13:00 Clonidine 0.1 mg 0.1 mg Q6H PRN PO 09/07/16 13:00 (Coumadin Consult Pharmacy) 0 ml @ 0 mls/hr UNSCH OTHER 09/07/16 12:15 (Protonix Inj) 40 mg Q24H IV PUSH 09/07/16 15:00 09/11/16 16:09 (D50w (Vial) Inj) 25 ml UNSCH PRN IV PUSH 09/07/16 12:15 (Glucagon Inj) 1 mg UNSCH PRN OTHER 09/07/16 12:15 Clotrimazole 1 applic 1 applic Q12HR TOPICAL 09/07/16 21:00 09/11/16 21:24 (Cubicin Inj/NS Inj) 100 ml @ 200 mls/hr Q24H IV 09/09/16 21:00 09/11/16 21:24 (Coumadin) 5 mg DAILY@16 PO 09/12/16 16:00 A/P Assessment and Plan SEVERE SEPSIS, RESOLVED LACTIC ACIDOSIS SEVERE LLE CELLULITIS CHRONIC EDEMA DM DIARRHEA, HISTORY OF C DIF MOISÉS COPD AF CHF GOUT MRSA HX PLAN: IV ABX IVF BLOOD CULTURES UA C/S C DIF ID CONSULT PT OT [facility] COUMADIN, FOLLOWUP INR'S 3 Per [place] MD Sep 12, 2016 13:40
[2016-09-12] MEDS: WARFARIN SOD 5 MG TAB PO SCH (16:06)
[2016-09-12] MEDS: PANTOPRAZOLE SODIUM 40 MG VIAL IV PUSH SCH (16:08)
[2016-09-12] MEDS: ACETAMINOPHEN/HYDROcodone 325 MG/5 MG TAB PO PRN (17:04)
[2016-09-12] MEDS: CLOTRIMAZOLE 1% CREAM 15 GM TOPICAL SCH (21:00)
[2016-09-12] MEDS: DAPTOmycin INJ 500 MG in SODIUM CHLORIDE 0.9% INJ 100 ML IV SCH (21:17)
[2016-09-12] MEDS: SODIUM CHLOR 0.9% 1000 ML INJ 1,000 ML IV SCH (21:18)
[2016-09-13] MEDS: ACETAMINOPHEN/HYDROcodone 325 MG/5 MG TAB PO PRN (00:11)
[2016-09-13 01:32] VITALS: BP 153/84; PULSE 60; RESP 20; TEMP 97.5; O2SAT 97
[2016-09-13 04:00] VITALS: BP 155/96; PULSE 58; RESP 20; TEMP 98.5; O2SAT 98
[2016-09-13] MEDS: INSULIN ASPART SUPPLEMENTAL SCALE SQ SCH ×4 (06:06→21:03)
[2016-09-13 08:00] VITALS: BP 174/70; PULSE 72; PULSE 74; RESP 16; TEMP 98; O2SAT 98
[2016-09-13] MEDS: ISOSORBIDE MONONITRATE 30 MG TAB PO SCH (08:18)
[2016-09-13] MEDS: METOPROLOL TARTRATE 25 MG TAB PO SCH ×2 (08:18→21:02)
[2016-09-13] MEDS: SODIUM CHLORIDE 0.9% FLUSH 5 ML FLUSH FLUSH SCH ×2 (08:28→21:03)
[2016-09-13 09:36] LABS: AUTOMATED NEUTROPHIL # 3.7 TH/MM3 (1.8-7.7); BASOPHIL % 0.6 % (0.0-2.0); EOSINOPHIL # 0.2 TH/MM3 (0-0.4); EOSINOPHIL % 2.6 % (0.0-4.0); HEMATOCRIT 40.7 % (39.0-51.0); HEMO FLAGS DIFF FINAL; LYMPH % 23.2 % (9.0-44.0); LYMPHOCYTE # 1.4 TH/MM3 (1.0-4.8); MEAN CELL VOLUME 94.9 FL (80.0-100.0); MEAN CORPUSCULAR HEMOGLOBIN 31.3 PG (27.0-34.0); MEAN CORPUSCULAR HGB CONC 32.9 % (32.0-36.0); MONO % 11.3 % (0.0-8.0); NEUT % 62.3 % (16.0-70.0); PLATELET COUNT 265 TH/MM3 (150-450); RED BLOOD COUNT 4.28 MIL/MM3 (4.50-5.90); RED CELL DISTRIBUTION WIDTH 14.1 % (11.6-17.2); WHITE BLOOD COUNT 5.9 TH/MM3 (4.0-11.0)
[2016-09-13 09:42] LABS: INTERNATIONAL NORMALIZED RATIO 1.3 RATIO; PROTHROMBIN TIME - PATIENT 14.4 SEC (9.8-11.6)
[2016-09-13 10:01] LABS: BICARBONATE 26.5 MEQ/L (21.0-32.0); POTASSIUM 4.1 MEQ/L (3.5-5.1)
--- NOTE | 2016-09-13 10:41 | HHI.FPPN ---
Subjective Remarks C/O WEAKNESS C/O FEELIING ILL D/W RN Objective Vitals Vital Signs Date Time Temp Pulse Resp B/P Pulse Ox O2 Delivery O2 Flow Rate FiO2 09/13/16 08:00 98.0 72 16 174/70 98 09/13/16 04:00 98.5 58 20 155/96 98 09/13/16 01:32 97.5 60 20 153/84 97 09/12/16 21:20 Room Air 09/12/16 20:00 98.9 72 20 125/61 95 09/12/16 19:35 21 09/12/16 16:06 97.4 90 20 148/80 95 09/12/16 13:06 97 21 09/12/16 12:06 97.9 70 22 132/65 96 I/O 09/12/16 09/12/16 09/12/16 09/13/16 09/13/16 09/13/16 07:00 15:00 23:00 07:00 15:00 23:00 Intake Total 360 ml 1050 ml 750 ml 800 ml Output Total 400 ml 500 ml 600 ml 1200 ml Balance -40 ml 550 ml 150 ml -400 ml Intake Oral 360 ml 720 ml 750 ml 800 ml IV Total 330 ml Output Urine Total 400 ml 500 ml 600 ml 1200 ml # Bowel Movements 2 2 1 0 Result Diagram: 09/13/1683409/13/16834 Objective Remarks GENERAL: SKIN: Warm and dry. HEAD: Atraumatic. Normocephalic. EYES: Pupils equal and round. No scleral icterus. No injection or drainage. ENT: No nasal bleeding or discharge. Mucous membranes pink and moist. NECK: Trachea midline. No JVD. CARDIOVASCULAR: Regular rate and rhythm. RESPIRATORY: No accessory muscle use. Clear to auscultation. Breath sounds equal bilaterally. GASTROINTESTINAL: Abdomen soft, non-tender, nondistended. Hepatic and splenic margins not palpable. MUSCULOSKELETAL: 3 LE EDEMA, SEVERE LLE CELLULITIS TO MID THIGH, MILD ON R NEUROLOGICAL: Awake and alert. No obvious cranial nerve deficits. Motor grossly within normal limits. 1 out of 5 muscle strength in the arms and legs. Normal speech. PSYCHIATRIC: Appropriate mood and affect; insight and judgment normal. Medications and IVs Current Medications Medications (Trade) Dose Ordered Sig/Abiola Route Start Time Stop Time Status Last Admin (Tears Naturale Opth Soln) 1 drop Q6H PRN EACH EYE 09/07/16 13:00 (Imdur) 30 mg DAILY PO 09/08/16 09:00 09/13/16 08:18 (Lopressor) 12.5 mg BID PO 09/07/16 21:00 09/13/16 08:18 (Ultram) 50 mg Q4HR PRN PO 09/07/16 13:00 Hydroxyzine HCl 10 mg 10 mg DAILY PRN PO 09/08/16 09:00 09/08/16 04:21 (NS 1000 ml Inj) 1,000 ml @ 42 mls/hr [id number] IV 09/07/16 12:02 09/12/16 21:18 (NS Flush) 2 ml UNSCH PRN FLUSH 09/07/16 12:15 (NS Flush) 2 ml BID FLUSH 09/07/16 21:00 09/13/16 08:28 (Tylenol) 650 mg Q4H PRN PO 09/07/16 13:00 (Zofran Inj) 4 mg Q6H PRN IVP 09/07/16 13:00 (Dulcolax Supp) 10 mg DAILY PRN [place] 09/07/16 12:15 (Milk Of Magnesia Liq) 30 ml Q12HR PRN PO 09/07/16 13:00 (Ambien) 5 mg HS PRN PO 09/07/16 21:00 (Narcan Inj) 0.4 mg UNSCH PRN IV 09/07/16 12:15 ([place] 5-325 Mg) 1 tab Q4H PRN PO 09/07/16 13:00 09/13/16 00:11 (Ativan) 0.5 mg Q8H PRN PO 09/07/16 13:00 Clonidine 0.1 mg 0.1 mg Q6H PRN PO 09/07/16 13:00 (Coumadin Consult Pharmacy) 0 ml @ 0 mls/hr UNSCH OTHER 09/07/16 12:15 (Protonix Inj) 40 mg Q24H IV PUSH 09/07/16 15:00 09/12/16 16:08 (D50w (Vial) Inj) 25 ml UNSCH PRN IV PUSH 09/07/16 12:15 (Glucagon Inj) 1 mg UNSCH PRN OTHER 09/07/16 12:15 Clotrimazole 1 applic 1 applic Q12HR TOPICAL 09/07/16 21:00 09/12/16 21:00 (Cubicin Inj/NS Inj) 100 ml @ 200 mls/hr Q24H IV 09/09/16 21:00 09/12/16 21:17 (Coumadin) 5 mg DAILY@16 PO 09/12/16 16:00 09/12/16 16:06 A/P Assessment and Plan SEVERE SEPSIS, RESOLVED LACTIC ACIDOSIS SEVERE LLE CELLULITIS CHRONIC EDEMA DM DIARRHEA, HISTORY OF C DIF MOISÉS COPD AF CHF GOUT MRSA HX PLAN: IV ABX IVF BLOOD CULTURES UA C/S C DIF ID CONSULT PT OT [facility] COUMADIN, FOLLOWUP INR'S 2 Per [place] MD Sep 13, 2016 10:41
[2016-09-13 12:00] VITALS: BP 126/58; PULSE 66; RESP 20; TEMP 97.8; O2SAT 98
[2016-09-13] MEDS: PANTOPRAZOLE SODIUM 40 MG VIAL IV PUSH SCH (15:00)
[2016-09-13 16:00] VITALS: BP 125/56; PULSE 67; RESP 16; TEMP 97.3; O2SAT 98
[2016-09-13] MEDS: WARFARIN SOD 5 MG TAB PO SCH (16:00)
--- NOTE | 2016-09-13 17:28 | HHI.IDPN ---
Note Infectious Disease Note Patient feels a little better. Leg has less ache. Afebrile. Itching improved. Denies chills. Seen for LE cellulitis. PAST MEDICAL HISTORY 1. History of bilateral lower extremity cellulitis in March 2016 with Pseudomonas maltophilia and MRSA. 2. History of peripheral arterial disease. 3. Diabetes mellitus 4. Hypertension 5. Morbid obesity 6. History of C-difficile. 7. Tonsillectomy ALLERGIES SULFA ANTIBIOTICS: Daptomycin. OBJECTIVE: Vital Signs Date Time Temp Pulse Resp B/P Pulse Ox O2 Delivery O2 Flow Rate FiO2 09/13/16 16:00 97.3 67 16 125/56 98 09/13/16 12:00 97.8 66 20 126/58 98 09/13/16 08:00 74 09/13/16 08:00 96 Room Air 21 09/13/16 08:00 98.0 72 16 174/70 98 09/13/16 04:00 98.5 58 20 155/96 98 09/13/16 01:32 97.5 60 20 153/84 97 09/12/16 21:20 Room Air 09/12/16 20:00 98.9 72 20 125/61 95 09/12/16 19:35 21 09/12/16 09/12/16 09/13/16 15:00 23:00 07:00 Intake Total 1050 ml 750 ml 800 ml Output Total 500 ml 600 ml 1200 ml Balance 550 ml 150 ml -400 ml Intake Oral 720 ml 750 ml 800 ml IV Total 330 ml Output Urine Total 500 ml 600 ml 1200 ml # Bowel Movements 2 1 0 Laboratory Tests Test 09/13/16 08:35 White Blood Count 5.9 TH/MM3 Red Blood Count 4.28 MIL/MM3 Hemoglobin 13.4 GM/DL Hematocrit 40.7 % Mean Corpuscular Volume 94.9 FL Mean Corpuscular Hemoglobin 31.3 PG Mean Corpuscular Hemoglobin 32.9 % Concent Red Cell Distribution Width 14.1 % Platelet Count 265 TH/MM3 Mean Platelet Volume 6.6 FL Neutrophils (%) (Auto) 62.3 % Lymphocytes (%) (Auto) 23.2 % Monocytes (%) (Auto) 11.3 % Eosinophils (%) (Auto) 2.6 % Basophils (%) (Auto) 0.6 % Neutrophils # (Auto) 3.7 TH/MM3 Lymphocytes # (Auto) 1.4 TH/MM3 Monocytes # (Auto) 0.7 TH/MM3 Eosinophils # (Auto) 0.2 TH/MM3 Basophils # (Auto) 0.0 TH/MM3 CBC Comment DIFF FINAL Differential Comment Laboratory Tests Test 09/13/16 08:35 Sodium Level 141 MEQ/L Potassium Level 4.1 MEQ/L Chloride Level 107 MEQ/L Carbon Dioxide Level 26.5 MEQ/L Anion Gap 8 MEQ/L Blood Urea Nitrogen 19 MG/DL Creatinine 1.39 MG/DL Estimat Glomerular Filtration 49 ML/MIN Rate Random Glucose 121 MG/DL Calcium Level 8.5 MG/DL PHYSICAL EXAMINATION GENERAL: No acute distress. HEENT: No icterus. Oropharynx no visible lesions. NECK: Supple without adenopathy. LUNGS: Decreased breath sounds. HEART: Regular S1 and S2. No audible murmurs. ABDOMEN: Bowel sounds present, soft, markedly obese, nontender. EXTREMITIES: The left lower extremity erythema has improved significantly now. Decreased edema at the foot and tibia now 1+. NEUROLOGIC: Nonfocal. SKIN: palms are peeling. No discreet rash. IMPRESSION 1. Bilateral lower extremity cellulitis and edema. Initially slow to respond. Now improved. 2. Diabetes mellitus 3. Acute on chronic kidney disease. 4. Failed outpatient antibiotic therapy. 5. Itching. ? antibiotics. Zosyn stopped yesterday. Better. RECOMMENDATIONS 1. Continue Daptomycin today. 2. Continue to Wrap both legs in jie wraps. had pooling of edema because the legs were not wrapped properly. 3. Consider switching to PO Doxycycline tomorrow x 5 days more. Eric Hunter MD Sep 13, 2016 17:28
[2016-09-13 20:00] VITALS: BP 141/65; PULSE 81; RESP 18; TEMP 97.2; O2SAT 94
[2016-09-13] MEDS: CLOTRIMAZOLE 1% CREAM 15 GM TOPICAL SCH ×2 (21:00→21:03)
[2016-09-13] MEDS: DAPTOmycin INJ 500 MG in SODIUM CHLORIDE 0.9% INJ 100 ML IV SCH (21:01)
[2016-09-14] VITALS: BP 144/70; PULSE 79; RESP 18; TEMP 98.1; O2SAT 97
[2016-09-14 04:00] VITALS: BP 136/76; PULSE 75; RESP 18; TEMP 97.7; O2SAT 97
[2016-09-14] MEDS: INSULIN ASPART SUPPLEMENTAL SCALE SQ SCH ×2 (06:14→11:39)
[2016-09-14 07:03] LABS: AUTOMATED NEUTROPHIL # 3.5 TH/MM3 (1.8-7.7); BASOPHIL % 0.8 % (0.0-2.0); EOSINOPHIL # 0.1 TH/MM3 (0-0.4); EOSINOPHIL % 1.8 % (0.0-4.0); HEMATOCRIT 38.5 % (39.0-51.0); HEMO FLAGS DIFF FINAL; LYMPH % 24.5 % (9.0-44.0); LYMPHOCYTE # 1.4 TH/MM3 (1.0-4.8); MEAN CELL VOLUME 94.7 FL (80.0-100.0); MEAN CORPUSCULAR HEMOGLOBIN 31.9 PG (27.0-34.0); MEAN CORPUSCULAR HGB CONC 33.7 % (32.0-36.0); NEUT % 58.9 % (16.0-70.0); PLATELET COUNT 239 TH/MM3 (150-450); RED BLOOD COUNT 4.07 MIL/MM3 (4.50-5.90); RED CELL DISTRIBUTION WIDTH 14.2 % (11.6-17.2); WHITE BLOOD COUNT 5.9 TH/MM3 (4.0-11.0)
[2016-09-14 07:12] LABS: INTERNATIONAL NORMALIZED RATIO 1.4 RATIO; PROTHROMBIN TIME - PATIENT 15.4 SEC (9.8-11.6)
[2016-09-14 07:26] LABS: BICARBONATE 25.5 MEQ/L (21.0-32.0); POTASSIUM 4.3 MEQ/L (3.5-5.1)
[2016-09-14 08:00] VITALS: BP 144/70; PULSE 73; RESP 28; TEMP 97.7; O2SAT 98
[2016-09-14] MEDS: METOPROLOL TARTRATE 25 MG TAB PO SCH (08:14)
[2016-09-14] MEDS: ISOSORBIDE MONONITRATE 30 MG TAB PO SCH (08:14)
[2016-09-14] MEDS: SODIUM CHLORIDE 0.9% FLUSH 5 ML FLUSH FLUSH SCH (08:15)
[2016-09-14] MEDS: CLOTRIMAZOLE 1% CREAM 15 GM TOPICAL SCH (08:17)
[2016-09-14 08:20] VITALS: RESP 24
--- NOTE | 2016-09-14 11:40 | HHI.DS ---
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 HAS HAD DRAINING ULCER LLE. PT NONCOMPLIANT WITH ELEVATING LEGS. DEVELOPED WORSENING EDEMA AND SUBSEQUENT CELLULITIS. TREATED WITH PO ABX TWICE THIS MONTH, AND LAST WEEK I STARTED ZOSYN AT THE [facility]. CELLULITIS OF LLE EXPANDED FROM CALF NOW TO THE LEFT THIGH. ALSO FOUND WITH WBC'S OF 19 THOUSAND, CREAT 2.6. PT STARTED HAVING DIARRHEA AGAIN YESTERDAY AND HAS HX C DIF. PT SON AND DGTR IN [facility] AND REQUESTED MORE AGGRESSIVE INPATIENT CARE. I ORDERED TO ER TODAY. PT SEEN IN C POD WITH HIS SON. DESHEVELED AND LETHARGIC. CBC/BMP: 09/14/16 0550 09/14/16 0550 Significant Findings Laboratory Tests Test 09/12/16 09/13/16 09/14/16 07:15 08:35 05:50 Prothrombin Time 12.0 SEC 14.4 SEC 15.4 SEC (9.8-11.6) (9.8-11.6) (9.8-11.6) Red Blood Count 4.28 MIL/MM3 4.07 MIL/MM3 (4.50-5.90) (4.50-5.90) Mean Platelet Volume 6.6 FL 6.5 FL (7.0-11.0) (7.0-11.0) Monocytes (%) (Auto) 11.3 % 14.0 % (0.0-8.0) (0.0-8.0) Blood Urea Nitrogen 19 MG/DL (7-18) 20 MG/DL (7-18) Creatinine 1.39 MG/DL 1.39 MG/DL (0.60-1.30) (0.60-1.30) Estimat Glomerular Filtration 49 ML/MIN (>89) 49 ML/MIN (>89) Rate Random Glucose 121 MG/DL 125 MG/DL (74-106) (74-106) Hematocrit 38.5 % (39.0-51.0) Chloride Level 109 MEQ/L (98-107) PE at Discharge GENERAL: SKIN: Warm and dry. HEAD: Atraumatic. Normocephalic. EYES: Pupils equal and round. No scleral icterus. No injection or drainage. ENT: No nasal bleeding or discharge. Mucous membranes pink and moist. NECK: Trachea midline. No JVD. CARDIOVASCULAR: Regular rate and rhythm. RESPIRATORY: No accessory muscle use. Clear to auscultation. Breath sounds equal bilaterally. GASTROINTESTINAL: Abdomen soft, non-tender, nondistended. Hepatic and splenic margins not palpable. MUSCULOSKELETAL: Extremities without clubbing, cyanosis, or edema. No obvious deformities. NEUROLOGICAL: Awake and alert. No obvious cranial nerve deficits. Motor grossly within normal limits. Five out of 5 muscle strength in the arms and legs. Normal speech. PSYCHIATRIC: Appropriate mood and affect; insight and judgment normal. Hospital Course 81 y CM ADMIT WITH - SEVERE SEPSIS, RESOLVED LACTIC ACIDOSIS SEVERE LLE CELLULITIS CHRONIC EDEMA DM DIARRHEA, HISTORY OF C DIF MOISÉS COPD AF CHF GOUT MRSA HX HOSPITAL COURSE AND PLAN WAS TO - IV ABX IVF BLOOD CULTURES UA C/S C DIF ID CONSULT PT OT [facility] INSULIN COUMADIN, FOLLOWUP INR'S Discharge Instructions Follow up Referrals: PCP Follow-up - 1 Week New Medications: Doxycycline Hyclate (Doxycycline Hyclate) 100 Mg Cap 100 MG PO BID Infection Days 5 Ref 0 CAP Tramadol (Tramadol) 50 Mg Tab 50 MG PO Q4H PRN PAIN #90 Ref 5 TAB Continued Medications: () 10 Mg Tab 10 MG PO DAILY PRN ALLERGIES TAB Carboxymethylcellulose Sodium (Refresh Tears) 0.5 % Rashard 1 DROP EACH EYE Q6H PRN DRY EYE RASHARD Cholecalciferol (D3) 1,000 Unit Cap 1000 UNIT PO BID CAP Furosemide (Lasix) 40 Mg Tab 40 MG PO BID TAB Insulin Aspart (Novolog Insulin Supplemental Scale) 100 /Ml Inj 1 BOTTLE SQ ACHS SLIDING SCALE dm Days 90 INJECTION Isosorbide Mononitrate (Imdur) 30 Mg Tab 30 MG PO DAILY TAB Metoprolol Tartrate 25 mg (Metoprolol Tartrate 25 mg) 25 Mg Tab 12.5 MG PO BID TAB Spironolactone (Spironolactone) 25 Mg Tab 25 MG PO BID TAB Tramadol HCl (Ultram) 50 Mg Tab 50 MG PO Q4H PRN PAIN SCALE 4 TO 10 #15 TAB Warfarin Sodium (Coumadin 2 mg) Warfarin Sodium 2 mg Tab 2 MG PO DAILY clot #28 TAB Discontinued Medications: Levofloxacin (Levaquin 750 Mg Tab) 750 Mg Tab 750 MG PO Q48H cellits Days 7 TAB () 600 Mg Tab 600 MG PO Q12HR cellitis Days 7 TAB Per [place] MD Sep 14, 2016 11:40
[2016-09-14] MEDS ORDERED: DOXY100C PO (11:43)
[2016-09-14] MEDS ORDERED: TRAM50TA PO (11:43)
--- NOTE | 2016-09-14 11:43 | HHI.DCPOC ---
Discharge Care Plan Diagnosis: (1) Atrial fibrillation (2) Gout (3) Cellulitis (4) Diabetes (5) CHF (congestive heart failure) (6) A-fib (7) Chronic renal insufficiency (8) HTN (hypertension) (9) Obstructive sleep apnea (10) COPD exacerbation (11) Bilateral leg edema Goals to Promote Your Health * To prevent worsening of your condition and complications * To maintain your health at the optimal level Directions to Meet Your Goals Take your medications as prescribed Follow your dietary instruction Follow activity as directed Keep your appointments as scheduled Take your immunizations and boosters as scheduled If your symptoms worsen call your PCP, if no PCP go to Urgent Care Center or Emergency Room Smoking is Dangerous to Your Health. Avoid second hand smoke Call the 24-hour hour crisis hotline for domestic abuse at Per [place] MD Sep 14, 2016 11:43
[2016-09-14 12:56] VITALS: O2SAT 97
== END 2016-09-14 12:59 | DRG 872 ==
LOC: NEPC 09:13 → NEDA 10:52 → N04B 15:40
PROVIDERS: ADMIT Family Medicine; ATTEND Family Medicine
DX: A41.9 Sepsis, unspecified organism (principal); N17.9 Acute kidney failure, unspecified; E87.2 Acidosis; I13.0 Hypertensive heart and chronic kidney disease with heart failure and stage 1 through stage 4 chronic kidney disease, or unspecified chronic kidney disease; I50.9 Heart failure, unspecified; J44.1 Chronic obstructive pulmonary disease with (acute) exacerbation; L03.116 Cellulitis of left lower limb; Z68.42 Body mass index [BMI] 45.0-49.9, adult; E11.22 Type 2 diabetes mellitus with diabetic chronic kidney disease; E66.01 Morbid (severe) obesity due to excess calories; R65.20 Severe sepsis without septic shock; N18.9 Chronic kidney disease, unspecified; I25.10 Atherosclerotic heart disease of native coronary artery without angina pectoris; I48.91 Unspecified atrial fibrillation; I73.9 Peripheral vascular disease, unspecified; M10.9 Gout, unspecified; G47.33 Obstructive sleep apnea (adult) (pediatric); Z86.14 Personal history of Methicillin resistant Staphylococcus aureus infection; L27.0 Generalized skin eruption due to drugs and medicaments taken internally; R21 Rash and other nonspecific skin eruption; Z91.19 Patient's noncompliance with other medical treatment and regimen; Z79.01 Long term (current) use of anticoagulants; Z79.4 Long term (current) use of insulin
CPT/HCPCS: 80048; 80053; 82948; 83605; 85007; 85025; 85027; 85610; 85730; 87040; 99284; C9113; J0878; J1815; J2543; J3370; J7030; J7050